=== PATIENT | female | born 1950 | race African-American/Black ===

== ENCOUNTER 2019-01-25 23:29 | Inpatient (IN) | payer MEDICARE, MEDICAID ==
[2019-01-26 01:52] LABS: PTT 28.4 SEC (22.9-36.1); Prothrombin Time 13.6 SEC (12.0-14.7)
[2019-01-26 02:02] LABS: #Lymphocytes 0.9 thou/uL (1.20-3.40); #Monocytes 0.7 thou/uL (0.11-0.59); #Neutrophils 5.8 thou/uL (1.40-6.50); %Basophils 0.1 % (0.0-1.0); %Eosinophils 0.2 % (0.0-10.0); %Lymphocytes 12.5 % (21.0-51.0); %Neutrophils 78.1 % (42.0-75.0); Hemoglobin 8.4 g/dL (12.0-16.0); Mean Corpuscular HGB CONC 32.9 g/dL (32.0-36.0); Mean Corpuscular Hemoglobin 32.2 pg (27.0-31.0); Mean Platelet Volume 7.9 fL (7.4-10.4); Platelet Count 346 thou/uL (130-400); RBC Distribution Width 15.2 % (11.5-14.5); White Blood Cell (WBC) Count 7.4 thou/uL (4.8-10.8)
[2019-01-26 02:18] LABS: ALT (SGPT) Less than 7 U/L (8-55); AST (SGOT) 13 U/L (5-34); Albumin 2.6 g/dL (3.4-4.8); Alkaline Phosphatase 90 U/L (40-150); Anion Gap 11 mmol/L (10-20); BUN (Urea Nitrogen) 18 mg/dL (9.8-20.1); Bilirubin, Total 1.1 mg/dL (0.2-1.2); Calc. Creatinine Clearance 0 mL/min (70-130); Calcium 8.5 mg/dL (7.8-10.44); Carbon Dioxide 26 mmol/L (23-31); Chloride 109 mmol/L (98-107); Estimated GFR-MDRD 36; Globulin 3.8 g/dL (2.4-3.5); Protein, Total 6.4 g/dL (6.0-8.3); Sodium 143 mmol/L (136-145)
[2019-01-26 02:22] LABS: Glucose 48 mg/dL (80-115)
[2019-01-26] MEDS ORDERED: Dextrose 50% Abboject 50 ML SYRINGE ONE ×3 (02:24→09:34)
[2019-01-26 03:11] LABS: Bilirubin Small (Negative); Blood, Urine Moderate (Negative); Clarity CLOUDY (Clear); Glucose, Urine (Dipstick) 100 mg/dL (Negative); Leukocyte Negative (Negative); Nitrite Negative (Negative); Protein, Urine (Dipstick) 300 mg/dL (Neg-Trace); pH, Urine 5.5 (5.0-9.0)
[2019-01-26 03:12] LABS: Bacteria/HPF 4+ HPF (None Seen); Pathc Cast-AUWi Flag 2.44 (0-2.49); Squamous Epithelial 0-3 HPF (0-3)
[2019-01-26 03:19] LABS: Other Casts/LPF 0-3 COARSE GRAN LPF (0-3 Hyaline)
[2019-01-26] MEDS ORDERED: Labetalol HCl 100 MG/20 ML VIAL ONE (03:54)
[2019-01-26] MEDS ORDERED: Aspirin 300 MG Suppository ONE (03:54)
[2019-01-26] MEDS ORDERED: Acetaminophen 325 MG TAB PO PRN (06:01)
[2019-01-26] MEDS ORDERED: Acetaminophen 650 MG Suppository PR PRN (06:01)
[2019-01-26] MEDS ORDERED: Ondansetron PF 4 MG/2 ML Vial IVP PRN (06:01)
[2019-01-26] MEDS ORDERED: Ondansetron ODT 4 MG TAB PO PRN (06:01)
[2019-01-26] MEDS ORDERED: Dextrose 50% Abboject 50 ML SYRINGE SLOW IVP PRN (06:17)
[2019-01-26] MEDS ORDERED: Dextrose 5% in Water 1,000 ML IV PRN (06:17)
[2019-01-26] MEDS ORDERED: HumaLOG 300 UNITS/3 ML VIAL SC PRN (06:17)
--- NOTE | 2019-01-26 07:18 | CT ---
PRELIMINARY REPORT/[facility]/EMERGENCY AFTER HOURS PROCEDURE: Addendum created by Dewey De La Garza MD on 01/26/2019 12:29 AM Central Time ([place] & [place]) IMPRESSION: No acute intracranial abnormality. The findings were verbally communicated via telephone conference with SharerCassie at 12:29 AM CDT on 01/26/2019. The findings were acknowledged and understood. Initial Report created on 01/26/2019 12:25 AM Central Time ([place] & [place]) EXAM: CT Head Without Contrast EXAM DATE/TIME: 01/26/2019 12:10 AM CLINICAL HISTORY: 68 years old, unknown; Signs and symptoms; Altered mental status/memory loss; Patient HX: Last seen normal 2100, PT has contracted upper ext, non verbal and is unable to follow commands TECHNIQUE: Imaging protocol: Axial computed tomography images of the head without contrast. Other technique: STROKE PROTOCOL was implemented. COMPARISON: No relevant prior studies available. FINDINGS: Brain: Scattered areas of hypoattenuation, likely chronic small vessel ischemic change, demyelination, or gliosis. No mass, hemorrhage, or acute infarction. Ventricles: Normal. Bones/joints: Normal. Sinuses: Normal as visualized. Mastoid air cells: Normal as visualized. Soft tissues: Unremarkable. Vasculature: Atherosclerotic vascular calcifications. IMPRESSION: ASSESSMENT: ASPECTS ([place] Stroke Program Early CT Score) is 10. Thank you for allowing us to participate in the care of your patient. Dictated and Authenticated by: Dewey De La Garza MD 01/26/2019 12:25 AM Central Time ([place] & [place]) FINAL REPORT EMERGENCY AFTER HOURS BRAIN CT WITHOUT IV CONTRAST: Date: 01/26/19 Time: 0011 hours IMPRESSION: No significant acute intracranial process. This report is in agreement with a preliminary report given by Luisana. Transcribed Date/Time: 01/26/2019 8:04 AM
--- NOTE | 2019-01-26 07:24 | CT ---
PRELIMINARY REPORT/[facility]/EMERGENCY AFTER HOURS PROCEDURE: Addendum created by Dewey De La Garza MD on 01/26/2019 4:18 AM Central Time ([place] & [place]) THIS REPORT CONTAINS FINDINGS THAT MAY BE CRITICAL TO PATIENT CARE. The findings were verbally communicated via telephone conference with EnrriquerCassie at 4:18 AM CDT on 01/26/2019. The findings were acknowledged and understood. Initial Report created on 01/26/2019 4:06 AM Central Time ([place] & [place]) EXAM: CT Angiography Head With Contrast EXAM DATE/TIME: 01/26/2019 3:40 AM CLINICAL HISTORY: 68 years old, female; Signs and symptoms; Cognitive deficit; Altered mental status; Patient HX: 68 y/o F presents to ED via EMS transport for AMS. Per family, PT last seen nrml at 2100, family then went to the store. On returning home, PT was found in a chair and not responding to family, with family reporting pt's arms clenched to her chest. Family checked pt's bld glu at home, initial readin g 68. PT did not complain to family of feeling poorly, having pain, n/v/d throughout the day. PT, with h/o CVA, is ususally able to ambulate with assistance. PT takes 1 tab asa daily. She was previously taking but is no longer taking plavix. ; Additional info: PT moved head during exam. Unable to repeat due to PT gfr. TECHNIQUE: Imaging protocol: Axial computed tomographic angiography images of the head with intravenous contrast using CT angiography protocol. Coronal and sagittal reformatted images were created and reviewed. 3D rendering: MIP reconstructed images were created and reviewed. COMPARISON: e+1 CT BRAIN WO CON 01/26/2019 12:10 AM FINDINGS: Right internal carotid artery: Unremarkable. Intracranial segment is patent with no significant stenosis. No aneurysm. Right anterior cerebral artery: Unremarkable. No occlusion or significant stenosis. No aneurysm. Right middle cerebral artery: Unremarkable. No occlusion or significant stenosis. No aneurysm. Right posterior cerebral artery: Unremarkable. No occlusion or significant stenosis. No aneurysm. Right vertebral artery: Unremarkable. No occlusion or significant stenosis. No aneurysm. Left internal carotid artery: Unremarkable. Intracranial segment is patent with no significant stenosis. No aneurysm. Left anterior cerebral artery: Unremarkable. No occlusion or significant stenosis. No aneurysm. Left middle cerebral artery: Unremarkable. No occlusion or significant stenosis. No aneurysm. Left posterior cerebral artery: Unremarkable. No occlusion or significant stenosis. No aneurysm. Left vertebral artery: Unremarkable. No occlusion or significant stenosis. No aneurysm. Basilar artery: Unremarkable. No occlusion or significant stenosis. No aneurysm. IMPRESSION: No acute findings. EXAM: CT Angiography Neck With Contrast EXAM DATE/TIME: 01/26/2019 3:40 AM CLINICAL HISTORY: 68 years old, female; Signs and symptoms; Cognitive deficit; Altered mental status; Patient HX: 68 y/o F presents to ED via EMS transport for AMS. Per family, PT last seen nrml at 2100, family then went to the store. On returning home, PT was found in a chair and not responding to family, with family reporting pt's arms clenched to her chest. Family checked pt's bld glu at home, initial readin g 68. PT did not complain to family of feeling poorly, having pain, n/v/d throughout the day. PT, with h/o CVA, is ususally able to ambulate with assistance. PT takes 1 tab asa daily. She was previously taking but is no longer taking plavix. ; Additional info: PT moved head during exam. Unable to repeat due to PT gfr. TECHNIQUE: Imaging protocol: Axial computed tomographic angiography images of the neck with intravenous contrast using CT angiography protocol. COMPARISON: e+1 CT BRAIN WO CON 01/26/2019 12:10 AM FINDINGS: Tubes, catheters and devices: Partially visualized right internal jugular central venous catheter. VASCULATURE: Right common carotid artery: Normal. No significant stenosis. No dissection or occlusion. Right internal carotid artery: Normal. Extracranial segment is patent with no significant stenosis. No dissection or occlusion. Right external carotid artery: Normal. No occlusion or significant stenosis. Right vertebral artery: Normal. No significant stenosis. No dissection or occlusion. Left common carotid artery: Normal. No significant stenosis. No dissection or occlusion. Left internal carotid artery: Normal. Extracranial segment is patent with no significant stenosis. No dissection or occlusion. Left external carotid artery: Normal. No occlusion or significant stenosis. Left vertebral artery: Normal. No significant stenosis. No dissection or occlusion. NECK: Trachea: Secretions or aspirated material within the upper thoracic trachea. Thyroid: 6 mm right posterior thyroid lobe nodule. Bones/joints: Degenerative changes of the visualized glenohumeral joints. Soft tissues: Normal. No significant soft tissue swelling. Lungs: Small bilateral pleural effusions with associated posterior atelectasis. IMPRESSION: No acute arterial vascular abnormality. COMMENT: Reference per NASCET criteria for degree of stenosis: Mild: less than 50% stenosis. Moderate: 50- 69% stenosis. Severe: 70-94% stenosis. Near occlusion: 95-99% stenosis. Thank you for allowing us to participate in the care of your patient. Dictated and Authenticated by: Dewey De La Garza MD 01/26/2019 4:06 AM Central Time ([place] & [place]) FINAL REPORT EMERGENCY AFTER HOURS HEAD CTA WITH 3D RENDERING AND NECK CTA WITH 3D RENDERING: DATE: 01/26/19 TIME: 0343 hours FINDINGS/IMPRESSION: HEAD CTA: No evidence for major branch occlusion. No evidence for aneurysm. NECK CTA: No evidence of hemodynamically significant stenosis. Secretions or fluid in the upper thoracic trache a. 0.6 cm posterior right thyroid nodule. Evidence for pleural effusions. This report is in agreement with a preliminary report given by Luisana. Transcribed Date/Time: 01/26/2019 8:21 AM
--- NOTE | 2019-01-26 07:25 | RAD ---
EXAM: Single view of the chest HISTORY: Altered mental status COMPARISON: None FINDINGS: Single view of the chest shows an enlarged cardiomediastinal silhouette. There is no eviden ce of consolidation, mass, or pleural effusion. Degenerative changes are seen in the spine. IMPRESSION: Cardiomegaly without evidence of acute cardiopulmonary disease
--- NOTE | 2019-01-26 07:27 | RAD ---
EXAM: Single view of the chest HISTORY: Central line placement COMPARISON: 01/26/2019 FINDINGS: Single view of the chest shows an enlarged but stable cardiomediastinal silhouette. A righ t IJ central venous catheter seen with its tip at the atrial caval junction. No pneumothorax is seen. There is no evidence of consolidation, mass, or pleural effusion. Degenerative changes are seen in the spine. IMPRESSION: Status post central line placement without evidence of complication.
--- NOTE | 2019-01-26 07:51 | HP ---
PRIMARY CARE PHYSICIAN: None reported. CODE STATUS: Full code. TIME OF EVALUATION: 6:00 a.m. CHIEF COMPLAINT: Altered mental status. HISTORY OF PRESENT ILLNESS: This is a 68-year-old female patient, came to the hospital through EMS due to altered mental status. The last time the patient was seen normal was around 2100. Family went to the store and found the patient when they come back not responded being on a chair and change of blood sugar was around 68. No clear etiology for the symptoms of the patient except for hypoglycemia. REVIEW OF SYSTEMS: Unable to obtain. The patient is confused. PAST MEDICAL HISTORY: Diabetes, hypertension, hyperlipidemia, CVA. PAST SURGICAL HISTORY: Hysterectomy. PSYCHIATRIC HISTORY: No previous psychiatric history. SOCIAL HISTORY: No drugs. No smoking history. No alcohol. FAMILY HISTORY: Reviewed and noncontributory for current presentation. KNOWN ALLERGIES: No known drug allergies. REPORTED MEDICATIONS: 1. Vitamin D3. 2. Lasix. 3. Lisinopril. 4. Hydrochlorothiazide. 5. Linzess. 6. Gabapentin. 7. Aspirin. PHYSICAL EXAMINATION: VITAL SIGNS: On presentation, blood pressure 220/113, pulse 63, respiratory rate was 16, oxygen saturation was 98% on room air. GENERAL: The patient was met in the bedside. The patient is obese and confused, not in acute distress. HEENT: Eyes normal conjunctivae. Dry oral mucosa. Anicteric. No JVD. RESPIRATORY: Bilateral air entry. No rales. No wheezes. Symmetric expansion. CARDIOVASCULAR: Normal rate, regular rhythm. No murmurs. No gallop. The patient had bilateral leg edema, and chronic changes in the skin in the legs. ABDOMEN: Soft, normal bowel sounds. MUSCULOSKELETAL: Baseline range of motion and strength. No tenderness. Skin: Warm, intact. No pallor. No rash. No redness. The patient has chronic atrophic changes in bilateral lower extremities with change in color. Peripheral pulses are present. Capillary refill seems to be intact. NEUROLOGIC: The patient is confused, unable to fully explore. The patient has sequelae of previous stroke. PSYCHIATRIC: The patient is in good mood, confused, unable to fully explore. DIAGNOSTIC DATA: EKG was reviewed. The patient has normal sinus rhythm with left ventricular hypertrophy with repolarization abnormalities. Ventricular rate 60, MT 130, QRS 86, QT corrected 502. Radiology report was reviewed. CT without contrast was normal. No significant abnormalities. CT of the head with contrast showed no acute findings. LABORATORY DATA: Labs were reviewed. The patient has white count 7.4, hemoglobin 8.4, MCV 98, platelet count 346. Coagulation; PT 13.6, INR 1.0, PTT 28.4. Chemistry; sodium 143, potassium 3.0, chloride 109, carbon dioxide 26, anion gap 11, BUN 18, creatinine 1.69. GFR 36, glucose 48, calcium 8.5, total bilirubin 1.1. AST 13, ALT less than 70, alkaline phosphatase 90. Troponin 0.012. Albumin 2.6. Urine was done and had white count 4 to 6. ASSESSMENT AND PLAN: The patient will be placed in the hospital with following medical problems: 1. Acute encephalopathy. Possible etiology is metabolic secondary to hypoglycemia, or due to hypertensive emergency. The mentation has improved after infusion of glucose and also better control of the blood pressure. We will treat underlying condition. 2. Hypertensive emergency. Blood pressure has improved with IV labetalol, that will be continued for now. Reconcile home medications once updated. 3. Chronic normocytic anemia. The level of hemoglobin has been slowly dropping as per the last labs that we have on records. We will recheck hemoglobin around 12 to make any further decisions. 4. Hypoglycemia, unclear etiology. We placed the patient on D5. Blood sugar has improved, it needs to be monitored, if not improving, she might need to be placed on D10. 5. Chronic kidney disease, stage 3. We will monitor kidney function, seems to be stable when compared with previous records. 6. Deep venous thrombosis prophylaxis. 7. Mildly elevated CK, could be due to the patient seemed to be in the same position for quite some time, not high enough. We will monitor and the patient already receiving some fluids. 8. History of diabetes type 2, uncontrolled, presented with hypoglycemia. For now, we will give D5 and we will start the patient on sliding scale to monitor blood sugar and treat accordingly. 9. Hyperlipidemia, low-cholesterol diet is advised. Reconcile home medications once updated. 10. History of cerebrovascular accident, fall precautions. Job ID: [id number]
[2019-01-26] MEDS ORDERED: Enoxaparin Sodium 40 MG/0.4 ML SYRINGE ONE (09:16)
[2019-01-26] MEDS: Enoxaparin Sodium 40 MG/0.4 ML SYRINGE SC SCH (09:21)
[2019-01-26] MEDS ORDERED: Iopamidol 370 76% 100 ML VIAL ONE (10:35)
[2019-01-26 12:12] LABS: Hemoglobin 7.8 g/dL (12.0-16.0)
[2019-01-26 13:42] VITALS: BMI 47.7
[2019-01-26] MEDS: Labetalol HCl 100 MG/20 ML VIAL SLOW IVP PRN (16:23)
--- NOTE | 2019-01-26 18:03 | PDOC.PN ---
- Subjective Encounter Start Date: 01/26/19 Encounter Start Time: 18:00 Subjective: f/u for hypoglycemic encephalopathy with persistently low -: glucose on D51/2NS IVF. Tolerating mech soft diet currently. - Objective Resuscitation Status - Order Detail: 01/26/19 06:01 Resuscitation Status Routine Resuscitation Status: FULL: Full Resuscitation MAR Reviewed: Yes Vital Signs & Weight: Vital Signs (12 hours) Temp Pulse Pulse Pulse Resp BP BP 01/26/19 16:59 01/26/19 16:23 79 212/88 H 01/26/19 15:54 60 58 L 189/84 H 01/26/19 15:50 01/26/19 15:47 97.5 F L 63 18 01/26/19 13:03 97.3 F L 60 20 BP BP Pulse Ox 01/26/19 16:59 144/67 H 01/26/19 16:23 01/26/19 15:54 212/88 H 01/26/19 15:50 98 01/26/19 15:47 212/91 H 98 01/26/19 13:03 147/93 H 98 Weight Weight 269 lb 6.4 oz Result Diagrams: 01/26/19 12:02 01/26/19 01:30 Additional Labs: Accuchecks 01/26/19 01/26/19 01/26/19 17:28 16:58 16:25 POC Glucose 66 L 53 L* 37 L* 01/26/19 01/26/19 01/26/19 10:21 09:42 09:27 POC Glucose 112 H 53 L* 55 L* 01/26/19 01/26/19 01/26/19 05:48 04:35 00:02 POC Glucose 95 57 L* 90 Laboratory Tests 08/17/18 01/26/19 12:20 01:30 Hgb 9.4 L 8.4 L Radiology Reviewed by me: Yes (CT brain - no acute process; CTA brain - no occlusion or signif stenosis) EKG Reviewed by me: Yes (Tele - SR) Phys Exam - Physical Examination Constitutional: NAD lethargic but awakens to name and tracks briefly HEENT: PERRLA, sclera anicteric, oral pharynx no lesions Neck: no nodes, no JVD, supple, full ROM Respiratory: no wheezing, no rales, no rhonchi, clear to auscultation bilateral S1, S2 Cardiovascular: RRR, no significant murmur, no rub, gallop Gastrointestinal: soft, non-tender, no distention, positive bowel sounds Musculoskeletal: no edema, pulses present Neurological: normal sensation, moves all 4 limbs Skin: normal turgor, cap refill <2 seconds Dx/Plan (1) Acute metabolic encephalopathy Code(s): G93.41 - METABOLIC ENCEPHALOPATHY Status: Acute Comment: Likely due to iatrogenic hypoglycemia from Levemir, hold all insulin, continue tx outlined below, serial monitoring (2) Hypoglycemia Code(s): E16.2 - HYPOGLYCEMIA, UNSPECIFIED Status: Acute Comment: Iatrogenic due to Levemir, hold Levemir, D5 IVF, encourage po intake, serial accuchecks (3) Hypertensive urgency Code(s): I16.0 - HYPERTENSIVE URGENCY Status: Acute Comment: Resolved, resume home BP regimen, IV Labetalol prn (4) CKD (chronic kidney disease), stage III Code(s): N18.3 - CHRONIC KIDNEY DISEASE, STAGE 3 (MODERATE) Status: Chronic Comment: Avoid nephrotoxic meds and limit contrast exposure, IVF's, serial creatinine (5) Hypokalemia Code(s): E87.6 - HYPOKALEMIA Status: Acute Comment: KCL replacement, repeat K+ level in am (6) Normocytic anemia Code(s): D64.9 - ANEMIA, UNSPECIFIED Status: Chronic Comment: Stable, serial H/H monitoring, likely due to CKD (7) DM II (diabetes mellitus, type II), controlled Code(s): E11.9 - TYPE 2 DIABETES MELLITUS WITHOUT COMPLICATIONS Status: Chronic Comment: Taking Levemir 80u in am and 90u pm, hold currently, check A1C, serial accuchecks - Plan plan discussed w/ family, PT/OT, web content & social media manager, DVT proph w/SCDs Stable currently -: Continue IV D51/2 NS -: Encourage po intake with mech soft diet -: Resume home BP regimen -: AM lab: BMP, CBC, A1C * .
[2019-01-26] MEDS: Dextrose 5 %-0.45 % NaCl 1,000 ML IV SCH (21:27)
[2019-01-26] MEDS: Gabapentin 300 MG CAP PO SCH (21:27)
[2019-01-27] MEDS: Labetalol HCl 100 MG/20 ML VIAL SLOW IVP PRN ×3 (02:02→20:23)
[2019-01-27 06:36] LABS: #Eosinphils 0.1 thou/uL (0.0-0.7); #Lymphocytes 1.6 thou/uL (1.20-3.40); #Monocytes 0.7 thou/uL (0.11-0.59); #Neutrophils 3.7 thou/uL (1.40-6.50); %Basophils 0.6 % (0.0-1.0); %Eosinophils 2.4 % (0.0-10.0); %Lymphocytes 25.7 % (21.0-51.0); %Monocytes 11.1 % (0.0-10.0); %Neutrophils 60.3 % (42.0-75.0); Hemoglobin 7.1 g/dL (12.0-16.0); Mean Corpuscular HGB CONC 31.9 g/dL (32.0-36.0); Mean Corpuscular Hemoglobin 31.1 pg (27.0-31.0); Mean Corpuscular Volume 97.3 fL (78.0-98.0); Mean Platelet Volume 8.1 fL (7.4-10.4); Platelet Count 247 thou/uL (130-400); RBC Distribution Width 15.6 % (11.5-14.5); Red Blood Cell (RBC) Count 2.27 mill/uL (4.20-5.40); White Blood Cell (WBC) Count 6.2 thou/uL (4.8-10.8)
[2019-01-27 06:50] LABS: Hemoglobin A1c 3.9 % (4.0-6.0)
[2019-01-27 07:07] LABS: Anion Gap 11 mmol/L (10-20); BUN (Urea Nitrogen) 17 mg/dL (9.8-20.1); Calc. Creatinine Clearance 58 mL/min (70-130); Calcium 7.9 mg/dL (7.8-10.44); Carbon Dioxide 24 mmol/L (23-31); Chloride 111 mmol/L (98-107); Estimated GFR-MDRD 34; Potassium 3.2 mmol/L (3.5-5.1); Sodium 143 mmol/L (136-145)
[2019-01-27 07:14] LABS: Glucose 55 mg/dL (80-115)
[2019-01-27] MEDS ORDERED: FOLIC ACID PO SCH (09:00)
[2019-01-27] MEDS ORDERED: B2 PO SCH (09:00)
[2019-01-27] MEDS ORDERED: B6 PO SCH (09:00)
[2019-01-27] MEDS ORDERED: VIT D3 PO SCH (09:00)
[2019-01-27] MEDS ORDERED: B12 PO SCH (09:00)
[2019-01-27] MEDS ORDERED: Prevnar 13-Val Conj/PF 0.5 ML SYRINGE IM ONE (09:00)
[2019-01-27] MEDS: Lisinopril/Hydrochlorothiazide 20/25 mg Tablet PO SCH (09:04)
[2019-01-27] MEDS: Gabapentin 300 MG CAP PO SCH ×3 (09:04→20:24)
[2019-01-27] MEDS: Enoxaparin Sodium 40 MG/0.4 ML SYRINGE SC SCH (09:05)
[2019-01-27] MEDS: Aspirin 81 mg Enteric Coated Tablet PO SCH (09:05)
[2019-01-27] MEDS: Dextrose 5 %-0.45 % NaCl 1,000 ML IV SCH ×2 (11:03→20:23)
--- NOTE | 2019-01-27 15:42 | PDOC.PN ---
- Subjective Encounter Start Date: 01/27/19 Encounter Start Time: 15:35 Subjective: f/u for hypoglycemic encephalopathy due to overdose of Levemir. -: Feeling better and glucose stabilizing with D5 IVF. - Objective Resuscitation Status - Order Detail: 01/26/19 06:01 Resuscitation Status Routine Resuscitation Status: FULL: Full Resuscitation MAR Reviewed: Yes Vital Signs & Weight: Vital Signs (12 hours) Temp Pulse Resp BP BP Pulse Ox 01/27/19 12:29 79 187/91 H 01/27/19 11:51 97.5 F L 96 16 184/87 H 99 01/27/19 09:04 60 159/71 H 01/27/19 08:54 99 01/27/19 07:50 97.4 F L 60 16 159/71 H 99 01/27/19 04:00 97.7 F 68 16 156/72 H 97 Weight Weight 269 lb 6.4 oz I&O: 01/26/19 01/27/19 01/28/19 06:59 06:59 06:59 Intake Total 1120 Output Total 450 Balance 670 Result Diagrams: 01/27/19 06:06 01/27/19 06:06 Additional Labs: Accuchecks 01/27/19 01/27/19 01/27/19 10:21 07:28 04:16 POC Glucose 108 67 L 77 01/26/19 01/26/19 01/26/19 22:34 18:43 17:28 POC Glucose 89 84 66 L 01/26/19 01/26/19 16:58 16:25 POC Glucose 53 L* 37 L* Microbiology 01/26/19 02:45 Urine vences catheter Urine Culture - Preliminary Laboratory Tests 08/17/18 01/26/19 01/26/19 12:20 01:30 01:30 Hgb 9.4 L 8.4 L Potassium 3.0 L Hemoglobin A1c 01/26/19 01/27/19 12:02 06:06 Hgb 7.8 L Potassium Hemoglobin A1c 3.9 L EKG Reviewed by me: Yes (Tele - SR) Phys Exam - Physical Examination Constitutional: NAD HEENT: PERRLA, sclera anicteric, oral pharynx no lesions Neck: no nodes, no JVD, supple, full ROM Respiratory: no wheezing, no rales, no rhonchi, clear to auscultation bilateral S1, S2 Cardiovascular: RRR, no significant murmur, no rub, gallop obese Gastrointestinal: soft, non-tender, no distention, positive bowel sounds chronic venous stasis changes bilat LE's Musculoskeletal: pulses present, edema present Neurological: moves all 4 limbs A x O x 1 Skin: normal turgor, cap refill <2 seconds Dx/Plan (1) Acute metabolic encephalopathy Code(s): G93.41 - METABOLIC ENCEPHALOPATHY Status: Acute Comment: Likely due to iatrogenic hypoglycemia from Levemir, hold all insulin, continue tx outlined below, serial monitoring, A1C 3.9 (2) Hypoglycemia Code(s): E16.2 - HYPOGLYCEMIA, UNSPECIFIED Status: Acute Comment: Iatrogenic due to Levemir, hold Levemir, D5 IVF, encourage po intake, serial accuchecks (3) Hypertensive urgency Code(s): I16.0 - HYPERTENSIVE URGENCY Status: Acute Comment: Resolved, resume home BP regimen, IV Labetalol prn (4) CKD (chronic kidney disease), stage III Code(s): N18.3 - CHRONIC KIDNEY DISEASE, STAGE 3 (MODERATE) Status: Chronic Comment: Avoid nephrotoxic meds and limit contrast exposure, IVF's, serial creatinine (5) Hypokalemia Code(s): E87.6 - HYPOKALEMIA Status: Acute Comment: KCL replacement, repeat K+ level in am (6) Normocytic anemia Code(s): D64.9 - ANEMIA, UNSPECIFIED Status: Chronic Comment: Check Iron studies, Ferritin, B12/Folate, stool guaiac, likely due to CKD (7) DM II (diabetes mellitus, type II), controlled Code(s): E11.9 - TYPE 2 DIABETES MELLITUS WITHOUT COMPLICATIONS Status: Chronic Comment: Taking Levemir 80u in am and 90u pm, hold currently, serial accuchecks, d/c all hypoglycemic meds - Plan plan discussed w/ family, continue antibiotics, PT/OT, social media content manager Stable currently -: Continue D5 IVF's -: D/C all DM medications -: Start Rocephin 1gm IV daily -: PT/OT for functional assessment * AM lab: BMP, H/H, Ferritin, Iron studies, Retic count, B12/Folate, stool guaiac
[2019-01-27] MEDS: cefTRIAXone\\ROCEPHIN 1 GM in Sodium Chloride 0.9% 100 ML IVPB SCH (18:12)
[2019-01-27] MEDS ORDERED: Ziprasidone 20 MG VIAL IM PRN (21:05)
[2019-01-27] MEDS ORDERED: Sterile Water 10 ML VIAL FS PRN (21:22)
[2019-01-28] MEDS: Labetalol HCl 100 MG/20 ML VIAL SLOW IVP PRN ×2 (00:10→04:19)
[2019-01-28 07:40] LABS: Iron 40 ug/dL (50-170); Iron Binding Capacity, Total 105 mcg/dL (265-497)
[2019-01-28 07:42] LABS: Hemoglobin 7.1 g/dL (12.0-16.0); Platelet Count 215 thou/uL (130-400)
[2019-01-28 07:42] LABS: Folate (Folic Acid) 2.6 ng/mL (7.0-31.4)
[2019-01-28 07:43] LABS: Reticulocyte Count 3.2 % (0.5-1.5)
[2019-01-28] MEDS: Furosemide 40 MG TAB PO SCH (10:27)
[2019-01-28] MEDS: Lisinopril/Hydrochlorothiazide 20/25 mg Tablet PO SCH (10:27)
[2019-01-28] MEDS: Aspirin 81 mg Enteric Coated Tablet PO SCH (10:27)
[2019-01-28] MEDS: Gabapentin 300 MG CAP PO SCH ×3 (10:27→20:04)
[2019-01-28] MEDS: Enoxaparin Sodium 40 MG/0.4 ML SYRINGE SC SCH (10:28)
[2019-01-28] MEDS: Dextrose 5 %-0.45 % NaCl 1,000 ML IV SCH ×2 (10:33→23:24)
[2019-01-28] MEDS: hydrALAZINE 20 MG/ML VIAL SLOW IVP PRN ×2 (13:24→19:10)
--- NOTE | 2019-01-28 13:25 | PDOC.PN ---
- Subjective Encounter Start Date: 01/28/19 Encounter Start Time: 13:20 Subjective: f/u for hypoglycemic encephalopathy with slow improvement. Remains -: lethargic with poor po intake. BP labile per nursing. - Objective Resuscitation Status - Order Detail: 01/26/19 06:01 Resuscitation Status Routine Resuscitation Status: FULL: Full Resuscitation MAR Reviewed: Yes Vital Signs & Weight: Vital Signs (12 hours) Temp Pulse Resp BP BP BP Pulse Ox 01/28/19 12:00 98.3 F 55 L 16 190/86 H 100 01/28/19 10:27 54 L 160/75 H 01/28/19 07:44 97.9 F 54 L 16 160/75 H 95 01/28/19 05:48 71 179/99 H 01/28/19 03:27 95.9 F L 60 16 196/79 H 99 Weight Weight 269 lb 6.4 oz I&O: 01/27/19 01/28/19 01/29/19 06:59 06:59 06:59 Intake Total 1120 1915 Output Total 450 750 Balance 670 1165 Result Diagrams: 01/28/19 07:17 01/27/19 06:06 Additional Labs: Accuchecks 01/28/19 01/28/19 01/28/19 10:43 05:33 00:03 POC Glucose 88 102 101 01/27/19 16:57 POC Glucose 99 Microbiology 01/26/19 02:45 Urine vences catheter Urine Culture - Final 01/26/19 02:45 Urine vences catheter Urine Culture - Preliminary Laboratory Tests 08/17/18 01/26/19 01/26/19 12:20 01:30 01:30 Hgb 9.4 L 8.4 L Potassium 3.0 L Hemoglobin A1c Iron TIBC Ferritin Vitamin B12 Folate 01/26/19 01/27/19 01/27/19 12:02 06:06 06:06 Hgb 7.8 L 7.1 L Potassium Hemoglobin A1c 3.9 L Iron TIBC Ferritin Vitamin B12 Folate 01/28/19 01/28/19 01/28/19 06:37 06:48 07:17 Hgb Potassium Hemoglobin A1c Iron 40 L TIBC 105 L Ferritin 383.44 H Vitamin B12 984 H Folate 2.60 L EKG Reviewed by me: Yes (Tele - SR) Phys Exam - Physical Examination lethargic, opens eyes to name briefly HEENT: PERRLA, sclera anicteric, oral pharynx no lesions Neck: no nodes, no JVD, supple, full ROM Respiratory: no wheezing, no rales, no rhonchi S1, S2 Cardiovascular: RRR, no significant murmur, no rub, gallop Gastrointestinal: soft, non-tender, no distention, positive bowel sounds chronic venous stasis and leathery skin to bilat LE's Musculoskeletal: pulses present, edema present A x O x 1 Skin: normal turgor, cap refill <2 seconds Dx/Plan (1) Acute metabolic encephalopathy Code(s): G93.41 - METABOLIC ENCEPHALOPATHY Status: Acute Comment: Likely due to iatrogenic hypoglycemia from Levemir, hold all insulin, continue tx outlined below, serial monitoring, A1C 3.9, slow improvement (2) Hypoglycemia Code(s): E16.2 - HYPOGLYCEMIA, UNSPECIFIED Status: Acute Comment: Iatrogenic due to Levemir, hold Levemir, D5 IVF, encourage po intake, serial accuchecks, increase D5 IVF 100ml/h (3) Hypertensive urgency Code(s): I16.0 - HYPERTENSIVE URGENCY Status: Acute Comment: Resolved, resume home BP regimen, IV Labetalol prn, add Hydralazine prn (4) CKD (chronic kidney disease), stage III Code(s): N18.3 - CHRONIC KIDNEY DISEASE, STAGE 3 (MODERATE) Status: Chronic Comment: Avoid nephrotoxic meds and limit contrast exposure, IVF's, serial creatinine (5) Hypokalemia Code(s): E87.6 - HYPOKALEMIA Status: Acute Comment: KCL replacement, repeat K+ level in am (6) Normocytic anemia Code(s): D64.9 - ANEMIA, UNSPECIFIED Status: Chronic Comment: Iron deficiency and Folate component, Transfuse 2u PRBC's today, IV Iron infusion, Folic acid po when taking po consistently (7) DM II (diabetes mellitus, type II), controlled Code(s): E11.9 - TYPE 2 DIABETES MELLITUS WITHOUT COMPLICATIONS Status: Chronic Comment: Taking Levemir 80u in am and 90u pm, hold currently, serial accuchecks, d/c all hypoglycemic meds - Plan continue antibiotics, PT/OT, social work manager, DVT proph w/SCDs Continue supportive mgmt -: IV Iron infusion today -: Transfuse 2u PRBC's today -: Continue Rocephin daily -: Increase D5 IVF 100ml/h * Add Hydralazine PRN HTN * AM lab: BMP, H/H
[2019-01-28] MEDS ORDERED: Iron, Sodium Ferric Gluconate 125 MG in Sodium Chloride 0.9% 100 ML IVPB SCH (15:00)
[2019-01-28] MEDS: cefTRIAXone\\ROCEPHIN 1 GM in Sodium Chloride 0.9% 100 ML IVPB SCH (16:35)
[2019-01-29] MEDS: hydrALAZINE 20 MG/ML VIAL SLOW IVP PRN (04:31)
[2019-01-29 04:40] LABS: Hemoglobin 9.8 g/dL (12.0-16.0); Platelet Count 265 thou/uL (130-400)
[2019-01-29 04:58] LABS: Anion Gap 12 mmol/L (10-20); BUN (Urea Nitrogen) 18 mg/dL (9.8-20.1); Calc. Creatinine Clearance 58 mL/min (70-130); Calcium 8.1 mg/dL (7.8-10.44); Carbon Dioxide 24 mmol/L (23-31); Chloride 110 mmol/L (98-107); Estimated GFR-MDRD 34; Glucose 109 mg/dL (80-115); Potassium 3.6 mmol/L (3.5-5.1); Sodium 142 mmol/L (136-145)
[2019-01-29] MEDS: Furosemide 40 MG TAB PO SCH (09:23)
[2019-01-29] MEDS: Aspirin 81 mg Enteric Coated Tablet PO SCH (09:23)
[2019-01-29] MEDS: Dextrose 5 %-0.45 % NaCl 1,000 ML IV SCH ×2 (09:23→12:47)
[2019-01-29] MEDS: Lisinopril/Hydrochlorothiazide 20/25 mg Tablet PO SCH (09:23)
[2019-01-29] MEDS: Gabapentin 300 MG CAP PO SCH ×3 (09:23→21:21)
[2019-01-29] MEDS: Enoxaparin Sodium 40 MG/0.4 ML SYRINGE SC SCH (09:27)
--- NOTE | 2019-01-29 09:45 | EKG ---
Test Reason : Blood Pressure : / mmHG Vent. Rate : 060 BPM Atrial Rate : 060 BPM P-R Int : 130 ms QRS Dur : 086 ms QT Int : 502 ms P-R-T Axes : -05 -05 109 degrees QTc Int : 502 ms Normal sinus rhythm Left ventricular hypertrophy with repolarization abnormality Prolonged QT Abnormal ECG Leftward axis Confirmed by JACINDA ALFARO DO ([id number]), editorial specialist GUANAKITO DELA CRUZ ([id number]) on 01/29/2019 9:45:24 AM Referred By: Confirmed By:JACINDA ALFARO DO
--- NOTE | 2019-01-29 11:41 | PDOC.PN ---
- Subjective Encounter Start Date: 01/29/19 Encounter Start Time: 11:39 Ms. Ojeda was seen today in follow-up of encephalopathy from hypoglycemia. She was a bit lethargic yesterday, but today she is more awake and alert. She had her daughter and multiple other family members at bedside. She deos not endorse any complaints. - Objective Resuscitation Status - Order Detail: 01/26/19 06:01 Resuscitation Status Routine Resuscitation Status: FULL: Full Resuscitation MAR Reviewed: Yes Vital Signs & Weight: Vital Signs (12 hours) Temp Pulse Pulse Resp BP BP BP 01/29/19 11:37 97.3 F L 77 16 156/70 H 01/29/19 09:23 79 142/62 H 01/29/19 08:00 01/29/19 07:36 97.5 F L 79 16 01/29/19 05:56 01/29/19 04:00 97.4 F L 71 16 01/29/19 02:50 97.1 F L 69 18 166/80 H 01/29/19 01:37 97.1 F L 66 18 01/29/19 01:20 97.1 F L 66 18 159/72 H 01/29/19 01:02 97.4 F L 66 18 159/69 H 01/29/19 00:49 97.4 F L 66 18 159/69 H 01/29/19 00:17 95.9 F L 64 18 151/69 H 01/29/19 00:00 95.9 F L 65 16 BP Pulse Ox 01/29/19 11:37 97 01/29/19 09:23 01/29/19 08:00 96 01/29/19 07:36 142/62 H 96 01/29/19 05:56 123/60 01/29/19 04:00 189/82 H 98 01/29/19 02:50 96 01/29/19 01:37 159/72 H 96 01/29/19 01:20 01/29/19 01:02 01/29/19 00:49 94 L 01/29/19 00:17 97 01/29/19 00:00 154/70 H 98 Weight Admit Weight 269 lb 6.4 oz Weight 269 lb 6.4 oz I&O: 01/28/19 01/29/19 01/30/19 06:59 06:59 06:59 Intake Total 7015 2301 Output Total 750 770 Balance 1165 1531 Result Diagrams: 01/29/19 04:16 01/29/19 04:16 Additional Labs: Accuchecks 01/29/19 01/29/19 01/28/19 06:25 00:38 18:19 POC Glucose 116 H 123 H 120 H Phys Exam - Physical Examination HEENT: PERRLA Respiratory: no wheezing, no rales, no rhonchi, clear to auscultation bilateral Cardiovascular: RRR, no significant murmur, no rub Gastrointestinal: soft, non-tender, no distention, positive bowel sounds Musculoskeletal: pulses present, edema present + massive lower extremity edema, with leathery, hyperkerotosis of both lower extremities up the the knees Dx/Plan (1) Hypertension Code(s): I10 - ESSENTIAL (PRIMARY) HYPERTENSION Status: Acute (2) Morbid obesity with BMI of 45.0-49.9, adult Code(s): E66.01 - MORBID (SEVERE) OBESITY DUE TO EXCESS CALORIES; Z68.42 - BODY MASS INDEX (BMI) 45.0-49.9, ADULT Status: Acute (3) UTI (urinary tract infection) Status: Acute (4) Hypoglycemia Code(s): E16.2 - HYPOGLYCEMIA, UNSPECIFIED Status: Acute Comment: Iatrogenic due to Levemir, hold Levemir, D5 IVF, encourage po intake, serial accuchecks, increase D5 IVF 100ml/h (5) CKD (chronic kidney disease), stage III Code(s): N18.3 - CHRONIC KIDNEY DISEASE, STAGE 3 (MODERATE) Status: Chronic Comment: Avoid nephrotoxic meds and limit contrast exposure, IVF's, serial creatinine (6) DM II (diabetes mellitus, type II), controlled Code(s): E11.9 - TYPE 2 DIABETES MELLITUS WITHOUT COMPLICATIONS Status: Chronic Comment: Taking Levemir 80u in am and 90u pm, hold currently, serial accuchecks, d/c all hypoglycemic meds - Plan * Hypoglycemia- her blood glucose is stable on IV dextrose infusion- will reduce the rate * She is more alert now, and can resume a diet. Hopefully her blood glucose will rebound after she is allowed to eat a few days * Will check a TFT's and an AM cortisol, but I suspect the hypoglycemia is due to mild- moderate malnutrition, and poor glycogen stores, as well as UTI. * UTI- can transition her to an oral antibiotic * HTN- blood pressure is stable. * Plan is for usp placement prior to returning home
[2019-01-29] MEDS: Cefdinir 300 MG CAP PO SCH (21:21)
[2019-01-30] MEDS: Dextrose 5 %-0.45 % NaCl 1,000 ML IV SCH ×2 (04:57→22:00)
[2019-01-30 06:08] LABS: Free T4 (Free Thyroxine) 1.04 ng/dL (0.70-1.48); Thyroid Stimulating Hormone 3.2998 uIU/mL (0.35-4.94)
[2019-01-30] MEDS: Enoxaparin Sodium 40 MG/0.4 ML SYRINGE SC SCH (08:11)
[2019-01-30] MEDS: pyridOXINE 50 MG (B6) TAB PO SCH (08:12)
[2019-01-30] MEDS: Cefdinir 300 MG CAP PO SCH ×2 (08:17→22:00)
[2019-01-30] MEDS: Furosemide 40 MG TAB PO SCH (08:17)
[2019-01-30] MEDS: Gabapentin 300 MG CAP PO SCH ×3 (08:17→22:00)
[2019-01-30] MEDS: Lisinopril/Hydrochlorothiazide 20/25 mg Tablet PO SCH (08:18)
[2019-01-30] MEDS: Folic Acid 1 MG TAB PO SCH (08:18)
[2019-01-30] MEDS: Aspirin 81 mg Enteric Coated Tablet PO SCH (08:19)
[2019-01-30] MEDS: Cyanocobalamin (Vitamin B-12) 1,000 MCG TAB PO SCH (08:19)
[2019-01-30] MEDS ORDERED: Amlodipine 5 MG TAB PO SCH (09:00)
--- NOTE | 2019-01-30 12:40 | PDOC.PN ---
- Subjective Encounter Start Date: 01/30/19 Encounter Start Time: 12:38 Ms. Ojeda was seen today in follow-up of Hypoglycemia and encephalopathy. She is awake and alert. She has not eaten much of her lunch. - Objective Resuscitation Status - Order Detail: 01/26/19 06:01 Resuscitation Status Routine Resuscitation Status: FULL: Full Resuscitation MAR Reviewed: Yes Vital Signs & Weight: Vital Signs (12 hours) Temp Pulse Resp BP BP BP Pulse Ox 01/30/19 12:00 97.8 F 82 20 189/81 H 95 01/30/19 09:51 80 163/74 H 01/30/19 09:20 163/74 H 01/30/19 08:18 80 185/77 H 01/30/19 08:00 94 L 01/30/19 07:53 98.7 F 79 18 198/76 H 94 L 01/30/19 04:00 97.9 F 84 16 167/72 H 95 Weight Admit Weight 269 lb 6.4 oz Weight 269 lb 6.4 oz I&O: 01/29/19 01/30/19 01/31/19 06:59 06:59 06:59 Intake Total 2301 1880 213 Output Total 770 555 Balance 1531 1325 213 Result Diagrams: 01/29/19 04:16 01/29/19 04:16 Additional Labs: Accuchecks 01/30/19 01/30/19 01/29/19 12:08 06:01 18:09 POC Glucose 92 95 120 H Phys Exam - Physical Examination HEENT: PERRLA Respiratory: no wheezing, no rales, no rhonchi, clear to auscultation bilateral Cardiovascular: RRR, no significant murmur, no rub Gastrointestinal: soft, non-tender, no distention, positive bowel sounds Musculoskeletal: pulses present, edema present + edema and thickened hyperkeratotic skin bilaterally Neurological: non-focal, normal sensation Dx/Plan (1) Hypoglycemia Code(s): E16.2 - HYPOGLYCEMIA, UNSPECIFIED Status: Acute Comment: Iatrogenic due to Levemir, hold Levemir, D5 IVF, encourage po intake, serial accuchecks, increase D5 IVF 100ml/h (2) Hypertension Code(s): I10 - ESSENTIAL (PRIMARY) HYPERTENSION Status: Acute (3) Morbid obesity with BMI of 45.0-49.9, adult Code(s): E66.01 - MORBID (SEVERE) OBESITY DUE TO EXCESS CALORIES; Z68.42 - BODY MASS INDEX (BMI) 45.0-49.9, ADULT Status: Acute (4) UTI (urinary tract infection) Status: Acute (5) CKD (chronic kidney disease), stage III Code(s): N18.3 - CHRONIC KIDNEY DISEASE, STAGE 3 (MODERATE) Status: Chronic Comment: Avoid nephrotoxic meds and limit contrast exposure, IVF's, serial creatinine (6) DM II (diabetes mellitus, type II), controlled Code(s): E11.9 - TYPE 2 DIABETES MELLITUS WITHOUT COMPLICATIONS Status: Chronic Comment: Taking Levemir 80u in am and 90u pm, hold currently, serial accuchecks, d/c all hypoglycemic meds (7) Moderate malnutrition Code(s): E44.0 - MODERATE PROTEIN-CALORIE MALNUTRITION Status: Acute - Plan * Hypoglycemia- continue D5 drip, util her blood glucose either begins to rise more, or her oral intake improves * Add nutritional supplements * Thyroid function tests and serum cortisol were normal * CKD- stable * HTN- blood pressure has been elevated consistently- will add Amlodipine * UTI- she has been changed to oral antibiotics * Awaiting custodial placement * .
[2019-01-30] MEDS: Labetalol HCl 100 MG/20 ML VIAL SLOW IVP PRN (12:51)
[2019-01-31] MEDS: Labetalol HCl 100 MG/20 ML VIAL SLOW IVP PRN (03:42)
[2019-01-31 05:54] LABS: Anion Gap 10 mmol/L (10-20); BUN (Urea Nitrogen) 18 mg/dL (9.8-20.1); Calc. Creatinine Clearance 52 mL/min (70-130); Carbon Dioxide 25 mmol/L (23-31); Chloride 111 mmol/L (98-107); Estimated GFR-MDRD 30; Glucose 97 mg/dL (80-115); Potassium 4.5 mmol/L (3.5-5.1); Sodium 141 mmol/L (136-145)
[2019-01-31] MEDS: Gabapentin 300 MG CAP PO SCH ×2 (08:58→16:51)
[2019-01-31] MEDS: Folic Acid 1 MG TAB PO SCH (08:58)
[2019-01-31] MEDS: Cyanocobalamin (Vitamin B-12) 1,000 MCG TAB PO SCH (08:59)
[2019-01-31] MEDS: pyridOXINE 50 MG (B6) TAB PO SCH (08:59)
[2019-01-31] MEDS: Aspirin 81 mg Enteric Coated Tablet PO SCH (08:59)
[2019-01-31] MEDS: NIFEdipine XL 60 MG TAB PO SCH (09:02)
[2019-01-31] MEDS: Lisinopril/Hydrochlorothiazide 20/25 mg Tablet PO SCH (09:03)
[2019-01-31] MEDS: Enoxaparin Sodium 40 MG/0.4 ML SYRINGE SC SCH (09:03)
[2019-01-31] MEDS: Cefdinir 300 MG CAP PO SCH ×2 (09:03→20:47)
[2019-01-31] MEDS: Dextrose 5 % And 0.9 % NaCl 1,000 ML IV SCH ×2 (09:19→20:47)
[2019-01-31 14:37] LABS: Actual Bicarbonate (HCO3a) 25.6 mEq/L (22-28); Base Excess (BEa) 1.3 mEq/L (-2.0 to +3.0); CO2 Tension 39.1 mmHg (35.0-45.0); Calcium, Ionized 1.16 mmol/L (1.12-1.30); Carboxyhemoglobin (COHb) 1.6 gm% (0.0-3.0); Hemoglobin (Hb) 9.1 g/dL (12.0-16.0); O2 Tension (PaO2) 71.7 mmHg (> 80.0); Potassium - ABG Lab 4.73 mmol/L (3.70-5.30); pH, Arterial 7.43 (7.35-7.45)
[2019-01-31 14:41] LABS: ALV-art Gradient 29.155 (0-20)
--- NOTE | 2019-01-31 16:14 | PDOC.PN ---
- Subjective Encounter Start Date: 01/31/19 Encounter Start Time: 12:15 Ms. Ojeda was seen today in follow-up around noon time for hypoglycemia and encephalopathy. She was sleep, with her lunch tray untouched in fron of her. When I awaken her and asked her if she wanted to eat, she frowned and said she is not hungry. She promptly went back to sleep. - Objective Resuscitation Status - Order Detail: 01/26/19 06:01 Resuscitation Status Routine Resuscitation Status: FULL: Full Resuscitation MAR Reviewed: Yes Vital Signs & Weight: Vital Signs (12 hours) Temp Pulse Pulse Pulse Resp BP BP 01/31/19 15:57 97.5 F L 67 17 01/31/19 11:53 98.3 F 70 16 01/31/19 10:00 66 67 160/79 H 01/31/19 09:03 66 135/79 01/31/19 09:02 66 135/79 BP BP Pulse Ox 01/31/19 15:57 128/65 99 01/31/19 11:53 180/85 H 97 01/31/19 10:00 124/76 01/31/19 09:03 01/31/19 09:02 Weight Admit Weight 269 lb 6.4 oz Weight 269 lb 6.4 oz I&O: 01/30/19 01/31/19 02/01/19 06:59 06:59 06:59 Intake Total 1880 1867 Output Total 555 1950 Balance 1325 -83 Result Diagrams: 01/29/19 04:16 01/31/19 05:16 Additional Labs: Accuchecks 01/31/19 01/31/19 01/31/19 12:46 05:40 00:05 POC Glucose 99 100 106 01/30/19 18:10 POC Glucose 96 Phys Exam - Physical Examination HEENT: PERRLA Respiratory: no wheezing, no rales, no rhonchi, clear to auscultation bilateral Cardiovascular: RRR, no significant murmur, no rub Gastrointestinal: soft, non-tender, no distention, positive bowel sounds Musculoskeletal: pulses present, edema present + massive lower extremity edema, and chronic venous stasis changes Neurological: non-focal, normal sensation, moves all 4 limbs Dx/Plan (1) Hypoglycemia Code(s): E16.2 - HYPOGLYCEMIA, UNSPECIFIED Status: Acute Comment: Iatrogenic due to Levemir, hold Levemir, D5 IVF, encourage po intake, serial accuchecks, increase D5 IVF 100ml/h (2) Hypertension Code(s): I10 - ESSENTIAL (PRIMARY) HYPERTENSION Status: Acute (3) Morbid obesity with BMI of 45.0-49.9, adult Code(s): E66.01 - MORBID (SEVERE) OBESITY DUE TO EXCESS CALORIES; Z68.42 - BODY MASS INDEX (BMI) 45.0-49.9, ADULT Status: Acute (4) UTI (urinary tract infection) Status: Acute (5) CKD (chronic kidney disease), stage III Code(s): N18.3 - CHRONIC KIDNEY DISEASE, STAGE 3 (MODERATE) Status: Chronic Comment: Avoid nephrotoxic meds and limit contrast exposure, IVF's, serial creatinine (6) DM II (diabetes mellitus, type II), controlled Code(s): E11.9 - TYPE 2 DIABETES MELLITUS WITHOUT COMPLICATIONS Status: Chronic Comment: Taking Levemir 80u in am and 90u pm, hold currently, serial accuchecks, d/c all hypoglycemic meds (7) Moderate malnutrition Code(s): E44.0 - MODERATE PROTEIN-CALORIE MALNUTRITION Status: Acute - Plan * Hypoglycemia- likely from poor oral intake and moderate malnutrition- she is sleeping alot, and does not eat. I am not sure what her baseline is. Due to the low albumin, I suspect she was doing this well before this admission. Will continue to encourage dietary supplements, and I have placed a call to her daughter Eric, but did not get an answer- will continue to try * Excessive daytime sleepiness- An ABG was ordered, expecting to see an elevated CO2, but this was normal- unclear why she is so drowsy- will cut back her dose of Gabapentin, and monitor * DM- blood glucose continues to run low * CKD- stable * Malnutrition- may need to try Megace if reducing the dose of Gabapentin does not help.
[2019-01-31] MEDS: Gabapentin 100 MG CAP PO SCH (20:47)
[2019-02-01 06:34] LABS: Anion Gap 10 mmol/L (10-20); BUN (Urea Nitrogen) 17 mg/dL (9.8-20.1); Calc. Creatinine Clearance 52 mL/min (70-130); Calcium 8.1 mg/dL (7.8-10.44); Carbon Dioxide 24 mmol/L (23-31); Chloride 112 mmol/L (98-107); Estimated GFR-MDRD 30; Glucose 86 mg/dL (80-115); Sodium 141 mmol/L (136-145)
[2019-02-01] MEDS: Enoxaparin Sodium 40 MG/0.4 ML SYRINGE SC SCH (09:35)
[2019-02-01] MEDS: Lisinopril/Hydrochlorothiazide 20/25 mg Tablet PO SCH (09:36)
[2019-02-01] MEDS: Cefdinir 300 MG CAP PO SCH ×2 (09:36→19:39)
[2019-02-01] MEDS: NIFEdipine XL 60 MG TAB PO SCH (09:36)
[2019-02-01] MEDS: Cyanocobalamin (Vitamin B-12) 1,000 MCG TAB PO SCH (09:36)
[2019-02-01] MEDS: Gabapentin 100 MG CAP PO SCH ×3 (09:37→19:39)
[2019-02-01] MEDS: Aspirin 81 mg Enteric Coated Tablet PO SCH (09:37)
[2019-02-01] MEDS: pyridOXINE 50 MG (B6) TAB PO SCH (09:37)
[2019-02-01] MEDS: Folic Acid 1 MG TAB PO SCH (09:38)
[2019-02-01] MEDS: Dextrose 5 % And 0.9 % NaCl 1,000 ML IV SCH (09:39)
--- NOTE | 2019-02-01 11:10 | PDOC.PN ---
- Subjective Encounter Start Date: 02/01/19 Encounter Start Time: 11:09 Ms. Ojeda was seen today in follow-up. She is a bit more alert this morning. Her nurse siad she ate a few more bites of her breakfast than yesterday. - Objective Resuscitation Status - Order Detail: 01/26/19 06:01 Resuscitation Status Routine Resuscitation Status: FULL: Full Resuscitation MAR Reviewed: Yes Vital Signs & Weight: Vital Signs (12 hours) Temp Pulse Resp BP BP Pulse Ox 02/01/19 09:36 71 166/87 H 02/01/19 04:00 97.4 F L 68 16 145/70 H 98 02/01/19 00:00 97.7 F 66 16 164/78 H 98 Weight Admit Weight 269 lb 6.4 oz Weight 269 lb 6.4 oz I&O: 01/31/19 02/01/19 02/02/19 06:59 06:59 06:59 Intake Total 1867 980 Output Total 1950 200 Balance -83 780 Result Diagrams: 01/29/19 04:16 02/01/19 05:46 Additional Labs: Accuchecks 02/01/19 02/01/19 01/31/19 06:16 00:18 17:57 POC Glucose 93 94 92 01/31/19 12:46 POC Glucose 99 Phys Exam - Physical Examination HEENT: PERRLA Respiratory: no wheezing, no rales, no rhonchi, clear to auscultation bilateral Cardiovascular: RRR, no significant murmur, no rub Gastrointestinal: soft, non-tender, no distention, positive bowel sounds Musculoskeletal: pulses present (+ edema in both upper and lower extremities), edema present + swelling in both upper and lower extremities Neurological: non-focal, normal sensation Psychiatric: normal affect, A&O x 3 Dx/Plan (1) Hypoglycemia Code(s): E16.2 - HYPOGLYCEMIA, UNSPECIFIED Status: Acute Comment: Iatrogenic due to Levemir, hold Levemir, D5 IVF, encourage po intake, serial accuchecks, increase D5 IVF 100ml/h (2) Hypertension Code(s): I10 - ESSENTIAL (PRIMARY) HYPERTENSION Status: Acute (3) Morbid obesity with BMI of 45.0-49.9, adult Code(s): E66.01 - MORBID (SEVERE) OBESITY DUE TO EXCESS CALORIES; Z68.42 - BODY MASS INDEX (BMI) 45.0-49.9, ADULT Status: Acute (4) UTI (urinary tract infection) Status: Acute (5) CKD (chronic kidney disease), stage III Code(s): N18.3 - CHRONIC KIDNEY DISEASE, STAGE 3 (MODERATE) Status: Chronic Comment: Avoid nephrotoxic meds and limit contrast exposure, IVF's, serial creatinine (6) DM II (diabetes mellitus, type II), controlled Code(s): E11.9 - TYPE 2 DIABETES MELLITUS WITHOUT COMPLICATIONS Status: Chronic Comment: Taking Levemir 80u in am and 90u pm, hold currently, serial accuchecks, d/c all hypoglycemic meds (7) Moderate malnutrition Code(s): E44.0 - MODERATE PROTEIN-CALORIE MALNUTRITION Status: Acute - Plan * Hypoglycemia- due to poor oral intake- she is more alert this morning, and appears to be eating more. Will discontinue the D5 drip, and monitor * Drowsiness- this may be due to Gabapentin- the dose was reduced. I also suspect she may have some underlying depression as well- will add Zoloft. * HTN- blood pressure is better * Acute on chronic kidney injury- her renal function is better. I believe she is close to her baseline. * Malnutrition- continue dietary supplements * Hopefully transfer to half-way soon
--- NOTE | 2019-02-01 15:23 | PQF ---
DATE: 02-01-19 ATTN: DR. DEAN WATSON Please exercise your independent, professional judgment in responding to the clarification form. Clinical indicators are provided on the bottom of this form for your review Please check appropriate box(s): [ X] I (concur) with the Wound Care findings as stated below. [ ] I (concur) with the Nurses Assessment findings as stated below. [ ] Pressure Ulcer: (Stage I: Erythema; Stage II: Partial thickness; Stage III : Full thickness; Stage IV: Necrosis to muscle/bone) [ ] Location: POA: [ ] Yes [ ] No[ ] Unable to determine Stage (I to IV): (Left Right Bilateral N/A ) [ ] No pressure ulcer diagnosis [ ] Deep tissue injury [ ] Other diagnosis [ ] Unable to determine In addition, please specify: Present on Admission (POA): [ X ] Yes [ ] No [ ] Unable to determine For continuity of documentation, please document condition throughout progress notes and discharge summary. Thank You. CLINICAL INDICATORS - SIGNS / SYMPTOMS / LABS WOUND CARE TEAM 01-28-19: LEFT INNER THIGH ABRASION, PARTIAL THICKNESS NURSE ASSESSMENT 01-26-19: LEFT GROIN PRESSURE ULCER, STAGE 3 RISK FACTORS: WOUND CARE ASSESSMENT 01-28-19: PT ALERT & ORIENTED TO PERSON, SPEECH UNCLEAR, OBESITY, IMMOBILITY, HX F ENCEPHALOPATHY, HTN, CKD, DM TREATMENTS: WOUND CARE CONSULT 01-28-19: DRESSING CHANGE Q 3 DAYS, WOUND IRRIGATION/ CLEANING, PATIENT/ FAMILY EDUCATION (This form is maintained as a part of the permanent medical record) 2014 [employer]. All Rights Reserved JOHN [email or web address] Office: [phone] LAURA
[2019-02-02] MEDS: Enoxaparin Sodium 40 MG/0.4 ML SYRINGE SC SCH (10:13)
[2019-02-02] MEDS: Lisinopril/Hydrochlorothiazide 20/25 mg Tablet PO SCH (10:14)
[2019-02-02] MEDS: Cefdinir 300 MG CAP PO SCH (10:14)
[2019-02-02] MEDS: NIFEdipine XL 60 MG TAB PO SCH (10:14)
[2019-02-02] MEDS: pyridOXINE 50 MG (B6) TAB PO SCH (10:15)
[2019-02-02] MEDS: Cyanocobalamin (Vitamin B-12) 1,000 MCG TAB PO SCH (10:15)
[2019-02-02] MEDS: Aspirin 81 mg Enteric Coated Tablet PO SCH (10:16)
[2019-02-02] MEDS: Folic Acid 1 MG TAB PO SCH (10:16)
[2019-02-02] MEDS: Gabapentin 100 MG CAP PO SCH (10:16)
--- NOTE | 2019-02-02 10:37 | PDOC.PN ---
- Subjective Encounter Start Date: 02/02/19 Encounter Start Time: 10:35 Ms. Ojeda was seen today in follow-up of hypoglycemia and encephalopathy. She is more alert today. She has been reported to be eating more. - Objective Resuscitation Status - Order Detail: 01/26/19 06:01 Resuscitation Status Routine Resuscitation Status: FULL: Full Resuscitation MAR Reviewed: Yes Vital Signs & Weight: Vital Signs (12 hours) Temp Pulse Resp BP BP Pulse Ox 02/02/19 10:14 74 172/84 H 02/02/19 07:46 98.3 F 74 20 172/84 H 97 02/02/19 04:00 97.2 F L 77 16 171/81 H 98 02/02/19 00:00 97.5 F L 73 16 169/80 H 98 Weight Admit Weight 269 lb 6.4 oz Weight 269 lb 6.4 oz I&O: 02/01/19 02/02/19 02/03/19 06:59 06:59 06:59 Intake Total 980 720 Output Total 200 300 Balance 780 420 Result Diagrams: 01/29/19 04:16 02/01/19 05:46 Additional Labs: Accuchecks 02/02/19 02/01/19 02/01/19 06:05 23:57 18:16 POC Glucose 95 95 95 02/01/19 11:27 POC Glucose 89 Phys Exam - Physical Examination HEENT: PERRLA Respiratory: no rales, no rhonchi, wheezing present + occsaional wheeze, Cardiovascular: RRR, no significant murmur, no rub Gastrointestinal: soft, non-tender, no distention, positive bowel sounds Musculoskeletal: pulses present, edema present + chronic venous stasis changes Neurological: non-focal, normal sensation, moves all 4 limbs Dx/Plan (1) Hypoglycemia Code(s): E16.2 - HYPOGLYCEMIA, UNSPECIFIED Status: Acute Comment: Iatrogenic due to Levemir, hold Levemir, D5 IVF, encourage po intake, serial accuchecks, increase D5 IVF 100ml/h (2) Hypertension Code(s): I10 - ESSENTIAL (PRIMARY) HYPERTENSION Status: Acute (3) Morbid obesity with BMI of 45.0-49.9, adult Code(s): E66.01 - MORBID (SEVERE) OBESITY DUE TO EXCESS CALORIES; Z68.42 - BODY MASS INDEX (BMI) 45.0-49.9, ADULT Status: Acute (4) UTI (urinary tract infection) Status: Acute (5) CKD (chronic kidney disease), stage III Code(s): N18.3 - CHRONIC KIDNEY DISEASE, STAGE 3 (MODERATE) Status: Chronic Comment: Avoid nephrotoxic meds and limit contrast exposure, IVF's, serial creatinine (6) DM II (diabetes mellitus, type II), controlled Code(s): E11.9 - TYPE 2 DIABETES MELLITUS WITHOUT COMPLICATIONS Status: Chronic Comment: Taking Levemir 80u in am and 90u pm, hold currently, serial accuchecks, d/c all hypoglycemic meds (7) Moderate malnutrition Code(s): E44.0 - MODERATE PROTEIN-CALORIE MALNUTRITION Status: Acute - Plan * Hypoglycemia- improved with improved oral intake * HTN- blood pressure is a bit elevated- but can have continued tritration in the swing bed * DM- blood glucose is stable - Insulin is on HOLD * Excessive sleepiness- continue Gabapentin at the lower dose * Stable for transition to retirement.
[2019-02-02 12:22] VITALS: TEMP 97.4
[2019-02-02 12:56] VITALS: BP 143/79
--- NOTE | 2019-02-03 01:27 | DIS ---
DATE OF ADMISSION: 01/26/2019 DATE OF DISCHARGE: 02/02/2019 DISCHARGE DISPOSITION: [place] [facility]. DISCHARGE DIAGNOSES: 1. Hypoglycemia. 2. Metabolic encephalopathy secondary to hypoglycemia. 3. Diabetes mellitus type 2. 4. Hypertension, uncontrolled. 5. Obesity. DISCHARGE MEDICATIONS: Please note that the patient's dose of gabapentin was decreased from 300 t.i.d. to 100 t.i.d., Procardia XL 60 mg was added daily as well as Zoloft 50 mg at bedtime. Continue: 1. Vitamin B6 25 mg daily. 2. Klor-Con 40 mEq twice a day. 3. Folic acid 2.5 mg daily. 4. Vitamin D3 of 2000 units daily. 5. Omnicef 300 mg twice a day for 3 days. 6. Lisinopril hydrochlorothiazide 20/25 one tablet daily. 7. Linzess 145 mcg daily. 8. Aspirin 81 mg a day. PROCEDURES DONE DURING THE ADMISSION: The patient had a CT angiogram which showed no acute arterial abnormality. The patient had a CT scan of the brain showing no significant acute intracranial process. The patient had a CT of the [place], showing no acute findings. CODE STATUS: Full code. ALLERGIES: NO KNOWN DRUG ALLERGIES. HOSPITAL COURSE: Ms. Ojeda is a pleasant 68-year-old female, who was brought in by family after she was found at home to be altered and less responsive. Her blood sugar was noted to be around 68. She was given some juice and responded to this. Stroke was ruled out and an a.m. cortisol was also done as well as thyroid function test, which were normal and it is suspected that the hypoglycemia is likely related to poor oral intake and decreased glycogen stores due to moderate malnutrition. It was also noted that she was very drowsy during her hospital stay and the dose of gabapentin was cut to 100 mg three times a day with improved results. It is noted that an ABG was done and her pCO2 was normal. She also had a urinary tract infection in which the urine culture was negative and she is being treated with Omnicef for this. Also, Procardia was added for better blood pressure control. She is clinically improved and is being discharged to the Swing bed in [place]. Job ID: [id number]
== END 2019-02-02 15:08 | DRG 637 ==
LOC: ERS 23:29 → ERHOLD 01-26 04:39 → 2SE 01-26 13:16
PROVIDERS: ADMIT Hospitalist; ATTEND Hospitalist
DX: E11.649 Type 2 diabetes mellitus with hypoglycemia without coma (principal); L89.893 Pressure ulcer of other site, stage 3; G93.41 Metabolic encephalopathy; N39.0 Urinary tract infection, site not specified; E44.0 Moderate protein-calorie malnutrition; Z68.42 Body mass index [BMI] 45.0-49.9, adult; E66.01 Morbid (severe) obesity due to excess calories; E11.22 Type 2 diabetes mellitus with diabetic chronic kidney disease; N18.3 Chronic kidney disease, stage 3 (moderate); I12.9 Hypertensive chronic kidney disease with stage 1 through stage 4 chronic kidney disease, or unspecified chronic kidney disease; N17.9 Acute kidney failure, unspecified; Z79.899 Other long term (current) drug therapy; Z79.82 Long term (current) use of aspirin
CPT/HCPCS: 36415; 36416; 36430; 36556; 51702; 70450; 70496; 70498; 71045; 80048; 80053; 81003; 81015; 82274; 82533; 82550; 82607; 82728; 82746; 82805; 83036; 83540; 83550; 84439; 84443; 84484; 85014; 85018; 85025; 85046; 85049; 85610; 85730; 86850; 86900; 86901; 87086; 90471; 90670; 93005; 96361; 96374; 96375; 96376; G0009; J0360; J0696; J1650; J2916; J3486; J3490; P9016; Q9967

== ENCOUNTER 2019-04-11 07:48 | Inpatient (IN) | payer MEDICARE, MEDICAID ==
[2019-04-11] MEDS ORDERED: Ampicillin/Sulbactam 3 GM in Sodium Chloride 0.9% 100 ML IVPB SCH (08:45)
[2019-04-11 08:58] LABS: Hemoglobin 7.5 g/dL (12.0-16.0); Mean Corpuscular HGB CONC 31.2 g/dL (32.0-36.0); Mean Corpuscular Volume 96.1 fL (78.0-98.0); Platelet Count 290 thou/uL (130-400); RBC Distribution Width 14.9 % (11.5-14.5); Red Blood Cell (RBC) Count 2.48 mill/uL (4.20-5.40); White Blood Cell (WBC) Count 16.6 thou/uL (4.8-10.8)
[2019-04-11 09:05] LABS: ALT (SGPT) Less than 7 U/L (8-55); AST (SGOT) 11 U/L (5-34); Albumin 2.2 g/dL (3.4-4.8); Alkaline Phosphatase 78 U/L (40-150); Anion Gap 15 mmol/L (10-20); BUN (Urea Nitrogen) 43 mg/dL (9.8-20.1); Bilirubin, Total 0.7 mg/dL (0.2-1.2); Calc. Creatinine Clearance 0 mL/min (70-130); Calcium 9.1 mg/dL (7.8-10.44); Carbon Dioxide 19 mmol/L (23-31); Chloride 124 mmol/L (98-107); Estimated GFR-MDRD 28; Globulin 4.7 g/dL (2.4-3.5); Glucose 90 mg/dL (80-115); Potassium 3.5 mmol/L (3.5-5.1); Protein, Total 6.9 g/dL (6.0-8.3); Sodium 154 mmol/L (136-145)
--- NOTE | 2019-04-11 09:09 | CT ---
CT BRAIN NONCONTRAST: DATE: 04/11/19 TIME: 0857 hours HISTORY: 68-year-old female with altered mental status. FINDINGS: There is no midline shift or any other mass effect. There is no evidence of acute intracranial hemor rhage, large cortical infarct, obstructive hydrocephalus, or extraaxial fluid collection. The calvar ium is intact. IMPRESSION: No acute intracranial findings. jn [] POS: [facility]
[2019-04-11 09:18] LABS: Band 18 % (5-11); Lymphocytes 16 % (21-51); MDiff Complete? YES; Monocytes 2 % (0-10); Neutrophil 63 % (42-75); Platelet Morphology Comment Appears Adequate; Polychromasia SLIGHT = 2-3 cells (100X) (0-2/hpf); Reactive Lymphocytes 1 % (0-10)
[2019-04-11 09:20] LABS: Bilirubin Negative (Negative); Blood, Urine 1+ (Negative); Clarity Turbid (Clear); Glucose, Urine (Dipstick) Normal (Negative); Leukocyte 500 Leu/uL (Negative); Nitrite Negative (Negative); Protein, Urine (Dipstick) 200 mg/dL (Neg-Trace); WBC/HPF Greater than 50 HPF (0-3); Yeast-Budding 2+ HPF (None Seen)
[2019-04-11 09:21] LABS: Bacteria/HPF 1+ HPF (None Seen)
[2019-04-11 09:27] LABS: CKMB 0.7 ng/mL (0-6.6)
--- NOTE | 2019-04-11 09:31 | RAD ---
PORTABLE CHEST 1 VIEW: Date: 04/11/19 Time: 0903 hours HISTORY: Difficulty breathing. FINDINGS/IMPRESSION: Comparison made with exam of 01/26/19. There has been interval removal of the right-sided central line. The heart size is borderline. The ao rta is tortuous. There are bibasilar infiltrates, right greater than left. No pneumothoraces or large effusions are seen. Small effusions may be present. POS: [facility]
[2019-04-11] MEDS ORDERED: Ondansetron ODT 4 MG TAB SL PRN (16:26)
[2019-04-11] MEDS ORDERED: Ondansetron PF 4 MG/2 ML Vial IVP PRN ×2 (16:26→18:33)
[2019-04-11] MEDS ORDERED: Acetaminophen 325 MG TAB PO PRN ×2 (16:26→18:33)
[2019-04-11] MEDS ORDERED: Lactated Ringer's 1,000 ML IV SCH (16:30)
[2019-04-11 16:59] VITALS: BMI 33.8
[2019-04-11] MEDS ORDERED: HumaLOG 300 UNITS/3 ML VIAL SC PRN ×2 (18:33)
[2019-04-11] MEDS ORDERED: cloNIDine 0.1 MG TAB PO PRN (18:33)
[2019-04-11] MEDS ORDERED: Ondansetron ODT 4 MG TAB PO PRN (18:33)
[2019-04-11] MEDS ORDERED: HYDROcodone/Acetaminophen 10/325 mg Tablet PO PRN (18:33)
[2019-04-11] MEDS ORDERED: Dextrose 5% in Water 1,000 ML IV PRN (18:33)
[2019-04-11] MEDS ORDERED: HYDROcodone/Acetaminophen 5/325 mg Tablet PO PRN (18:33)
[2019-04-11] MEDS ORDERED: hydrALAZINE 20 MG/ML VIAL SLOW IVP PRN (18:33)
[2019-04-11] MEDS ORDERED: Dextrose 50% Abboject 50 ML SYRINGE SLOW IVP PRN (18:33)
[2019-04-11] MEDS: Sodium Chloride 0.45% 1,000 ML IV SCH (19:00)
[2019-04-11] MEDS: Famotidine 20 MG TAB PO SCH (20:27)
--- NOTE | 2019-04-12 01:35 | HP ---
PRIMARY CARE PHYSICIAN: Rohit Lee MD. REASON FOR ADMISSION: Extremely weak and congested in the care home. HISTORY OF PRESENT ILLNESS: Ms. Howell is a very pleasant 68-year-old female who has a history of hypertension and diabetes mellitus. She also is severely deconditioned and essentially almost bedbound. She has been residing at the [facility] when they noticed that she had fever and appeared congested and as a result, they sent her to the ER for evaluation. In the ER, she was found to have bilateral pulmonary infiltrates as well as an elevated white blood cell count and she is being admitted for healthcare-associated pneumonia. There is also concern that she may have aspirated as well. The patient is very pleasant and smiles a lot, but she does not endorse any problems. When asked if she is having any chest pain or shortness of breath, she denies this, but she appears visibly uncomfortable at times. Her daughter who is also a nurse is concerned about an ulcer on her heel and otherwise no other complaints are elicited. REVIEW OF SYSTEMS: Essentially negative. The patient answers pretty much no to everything asked. CONSTITUTIONAL: She has had fever, but no chills, no night sweats, no weight loss. HEENT: No headaches, no dizziness, no visual changes, no sore throat or rhinorrhea. No neck pain. No adenopathy. PULMONARY: As the History of Present Illness. CARDIOVASCULAR: She denies chest pain or shortness of breath. No PND. No orthopnea. GENITOURINARY: No urinary frequency or hematuria. No hesitancy. NEUROLOGIC: No focal weakness. No seizures. SKIN AND INTEGUMENT: They did notice some skin breakdown on her right heel which has been present as well as chronic venous stasis changes. MUSCULOSKELETAL: She denies any joint pains and no muscle tenderness or pain. PSYCHIATRIC: No symptoms of anxiety or depression. PAST MEDICAL HISTORY: Significant for hypertension and diabetes as well as hypercholesterolemia. Unknown whether or not she has had a previous stroke, but the family believe so. PAST SURGICAL HISTORY: She has had a hysterectomy. ALLERGIES: NO KNOWN DRUG ALLERGIES. SOCIAL HISTORY: She is , has 4 children. She currently resides at [facility]. She is a DNAR and her medical power of assistant attorney general is Wily, her daughter. FAMILY HISTORY: Significant for diabetes mellitus. CURRENT MEDICATIONS: Include; 1. Aspirin 81 mg daily. 2. Carvedilol 6.25 mg twice daily. 3. Vitamin D3 of 2000 units daily. 4. Folic acid 2.5 mg daily. 5. Gabapentin 100 mg t.i.d. 6. Hydralazine 50 mg daily. 7. Hydrochlorothiazide 25 mg daily. 8. Megace 400 mg daily. 9. Mirtazapine 7.5 mg at bedtime. 10. Nifedipine extended release 60 mg daily. 11. Pyridoxine 25 mg daily. 12. Zoloft 50 mg at bedtime. PHYSICAL EXAMINATION: GENERAL: She is alert and oriented. She appears to be in no acute distress. She is well developed, but she does have some temporal wasting even in the setting of what appears to be edema or obesity on her extremities. VITAL SIGNS: Her blood pressure was 157/83, heart rate 100, respiratory rate of 24, and she is afebrile, temperature was 100 on admission. HEENT: Again temporal wasting. Pupils are equal, round, and reactive to light. Extraocular muscles are intact. Her sclerae are anicteric. Throat; there is no erythema, no exudates. NECK: No adenopathy, no bruits. LUNGS: She has rhonchi and rales throughout. CARDIOVASCULAR: She has normal S1 and S2. There is no S3 or S4. No murmurs or clicks, no rubs. ABDOMEN: Obese, it is soft, nontender, and nondistended. Positive for bowel sounds. There is no rebound, no guarding, no organomegaly. EXTREMITIES: There is no calf tenderness. No joint effusions. NEUROLOGIC: Her cranial nerves are intact, 2 through 12. SKIN AND INTEGUMENT: She has a thickened icteric skin bilaterally in both her lower extremities and some pressure ulcer on the right heel, which is a stage II, and it is oval and approximately 6 cm to 7 cm in diameter. No purulent drainage. LABORATORY RESULTS: Sodium is 154, potassium 3.5, chloride is 124, CO2 is 19, BUN of 43, creatinine 2.10, glucose is 90. CBC; white blood cell count 16.6, hemoglobin 7.5, hematocrit is 23.8, and platelet count is 290. Urinalysis was positive for 1+ bacteria and too numerous to count wbc's. ASSESSMENT: 1. This is a very pleasant 68-year-old female, who presents with bilateral infiltrates on exam and an elevated white blood cell count, consistent with pneumonia. This could be either healthcare associated or could be aspiration. She will be admitted to the medical floor and started on IV antibiotics to cover for hospital-acquired pneumonia as well as aspiration. 2. Speech Therapy will be consulted as well as obtain a modified barium swallow. 3. Hypernatremia. This is likely due to volume depletion and dehydration and inadequate oral intake. She will be placed on IV fluids. Initially we will place her on IV saline and then transition her down to a hypotonic fluid. 4. Acute renal failure. This is likely due to volume depletion and prerenal azotemia. We will continue IV fluid resuscitation. She has moderate malnutrition, likely due to some degree of dysphagia. Once the swallowing evaluation is complete, we can determine what type of supplementation can be given. 5. Decubitus ulcer on the heel. We will have medication for pain available and we will also consult Wound Care. 6. Diabetes mellitus. We will place her on a sliding scale insulin and further recommendations to follow. Job ID: [id number]
[2019-04-12] MEDS: Sodium Chloride 0.45% 1,000 ML IV SCH (03:01)
[2019-04-12 05:48] LABS: Anion Gap 17 mmol/L (10-20); BUN (Urea Nitrogen) 46 mg/dL (9.8-20.1); Calc. Creatinine Clearance 38 mL/min (70-130); Calcium 8.9 mg/dL (7.8-10.44); Carbon Dioxide 16 mmol/L (23-31); Chloride 125 mmol/L (98-107); Estimated GFR-MDRD 27; Glucose 111 mg/dL (80-115); Potassium 3.6 mmol/L (3.5-5.1); Sodium 154 mmol/L (136-145)
[2019-04-12 06:00] LABS: Band 23 % (5-11); Hemoglobin 6.5 g/dL (12.0-16.0); Lymphocytes 15 % (21-51); MDiff Complete? YES; Mean Corpuscular HGB CONC 31.9 g/dL (32.0-36.0); Mean Corpuscular Hemoglobin 30.5 pg (27.0-31.0); Mean Corpuscular Volume 95.5 fL (78.0-98.0); Mean Platelet Volume 8.2 fL (7.4-10.4); Metamyelocyte 1 % (0-0); Monocytes 5 % (0-10); Neutrophil 56 % (42-75); Platelet Count 235 thou/uL (130-400); Platelet Morphology Comment Appears Adequate; RBC Distribution Width 14.8 % (11.5-14.5); Red Blood Cell (RBC) Count 2.13 mill/uL (4.20-5.40); White Blood Cell (WBC) Count 13.3 thou/uL (4.8-10.8)
[2019-04-12] MEDS: Piperacillin/Tazobactam 3.375 GM in Sodium Chloride 0.9% 100 ML IVPB SCH ×5 (06:22→20:37)
--- NOTE | 2019-04-12 12:23 | RAD ---
MODIFIED BARIUM SWALLOW IN THE PRESENCE OF THE SPEECH PATHOLOGIST: HISTORY: Pneumonitis due to inhalation of food and vomiting. Dysphagia, unspecified. Feeding difficulties. FINDINGS: In the presence of the speech pathologist, the patient was administered pudding and nectar-thick cons istencies. There is prolongation of the oral phase. There is penetration and aspiration (silent) wi th nectar-thick consistencies. IMPRESSION: Penetration and aspiration. Please refer to the speech pathologist's report for feeding recommendations. POS: OFF
[2019-04-12] MEDS: Enoxaparin Sodium 30 MG/0.3 ML SYRINGE SC SCH (12:35)
[2019-04-12] MEDS: Dextrose 5% in Water 1,000 ML IV SCH ×2 (12:47→18:21)
--- NOTE | 2019-04-12 15:58 | PDOC.HOSPP ---
- Subjective Subjective: Ms. Howell was seen today in follow-up of Pneumonia. She is awake and alert. She denies having any pain. - Objective Vital Signs & Weight: Vital Signs (12 hours) Temp Pulse Resp BP Pulse Ox 04/12/19 15:43 97 F L 60 16 122/54 L 99 04/12/19 07:42 97.3 F L 66 16 107/56 L 100 Weight Admit Weight 216 lb Weight 216 lb I&O: 04/11/19 04/12/19 04/13/19 06:59 06:59 06:59 Intake Total 1825 Output Total 75 Balance 1750 Result Diagrams: 04/12/19 04:44 04/12/19 04:44 Additional Labs: Accuchecks 04/12/19 04/12/19 04/12/19 12:29 04:53 00:43 POC Glucose 135 H 112 H 114 H 04/11/19 16:33 POC Glucose 102 ROS - Review of Systems All systems: All other ROS were reviewed and found negative. - Medication Medications: Active Medications Generic Name Dose Route Start Last Admin Trade Name Fide PRN Reason Stop Dose Admin Enoxaparin Sodium 30 mg 04/12/19 09:00 04/12/19 12:35 Lovenox SC Not Given 0900 RUTH ANN Famotidine 20 mg 04/11/19 21:00 04/11/19 20:27 Pepcid PO Not Given QPM RUTH ANN Piperacillin Sod/Tazobactam 100 mls @ 200 mls/hr 04/11/19 23:59 04/12/19 12: 47 Sod 3.375 gm/ Sodium Chloride IVPB 100 mls Q6HR RUTH ANN Administration Dextrose/Water 1,000 mls @ 125 mls/hr 04/12/19 10:15 04/12/19 12:47 D5w IV 1,000 mls .Q8H RUTH ANN Administration - Exam Eye: PERRL, anicteric sclera (+ temporal wasting) Heart: RRR, no murmur, no gallops, no rubs Respiratory: CTAB, no wheezes, no rales, no ronchi Gastrointestinal: soft, non-tender, non-distended, normal bowel sounds, no palpable masses Extremities: no cyanosis, no edema Hosp A/P (1) Aspiration pneumonia Code(s): J69.0 - PNEUMONITIS DUE TO INHALATION OF FOOD AND VOMIT Status: Acute (2) Hypertension Code(s): I10 - ESSENTIAL (PRIMARY) HYPERTENSION Status: Chronic (3) Moderate malnutrition Code(s): E44.0 - MODERATE PROTEIN-CALORIE MALNUTRITION Status: Chronic (4) CKD (chronic kidney disease), stage III Code(s): N18.3 - CHRONIC KIDNEY DISEASE, STAGE 3 (MODERATE) Status: Chronic (5) DM II (diabetes mellitus, type II), controlled Code(s): E11.9 - TYPE 2 DIABETES MELLITUS WITHOUT COMPLICATIONS Status: Chronic - Plan * Aspiration Pneumonia- slowly improving * Continue Zosyn * She has significant risk for aspiration- discussed with Speech Therapist, as well as the patient's daughter's. They will need to think things overnight- they are decided between diet with risks, and PEG tube * HTN- blood pressure is stable * Acute on chronic anemia- will transfuse * DM-blood glucose is stable
[2019-04-12] MEDS ORDERED: Sodium Chloride 0.9% 500 ML IVPB SCH (19:15)
[2019-04-12] MEDS: Famotidine 20 MG TAB PO SCH (20:37)
[2019-04-13] MEDS: Piperacillin/Tazobactam 3.375 GM in Sodium Chloride 0.9% 100 ML IVPB SCH ×4 (01:15→20:37)
[2019-04-13] MEDS: Dextrose 5% in Water 1,000 ML IV SCH (01:19)
[2019-04-13] MEDS ORDERED: Nystatin Powder 15 GM BOT TOP PRN (02:50)
[2019-04-13 05:28] LABS: Band 3 % (5-11); Hemoglobin 7.9 g/dL (12.0-16.0); Hypochromia SLIGHT = 6-15 cells (100X) (0-5/hpf); Lymphocytes 9 % (21-51); MDiff Complete? YES; Mean Corpuscular HGB CONC 31.1 g/dL (32.0-36.0); Mean Corpuscular Hemoglobin 29.5 pg (27.0-31.0); Mean Corpuscular Volume 94.8 fL (78.0-98.0); Mean Platelet Volume 8.9 fL (7.4-10.4); Neutrophil 88 % (42-75); Platelet Count 229 thou/uL (130-400); Platelet Morphology Comment Appears Adequate; RBC Distribution Width 14.4 % (11.5-14.5); Red Blood Cell (RBC) Count 2.67 mill/uL (4.20-5.40); White Blood Cell (WBC) Count 14.2 thou/uL (4.8-10.8)
[2019-04-13 07:44] LABS: Anion Gap 14 mmol/L (10-20); BUN (Urea Nitrogen) 48 mg/dL (9.8-20.1); Calc. Creatinine Clearance 33 mL/min (70-130); Calcium 8.4 mg/dL (7.8-10.44); Carbon Dioxide 17 mmol/L (23-31); Chloride 125 mmol/L (98-107); Estimated GFR-MDRD 23; Glucose 137 mg/dL (80-115); Potassium 3.2 mmol/L (3.5-5.1); Sodium 153 mmol/L (136-145)
[2019-04-13] MEDS: Enoxaparin Sodium 30 MG/0.3 ML SYRINGE SC SCH (08:35)
[2019-04-13] MEDS ORDERED: Sodium Chloride 0.9% 1,000 ML IV SCH (11:15)
--- NOTE | 2019-04-13 16:42 | PDOC.FMACP ---
Advance Care Planning - Problem (1) Aspiration pneumonia Status: Acute Code(s): J69.0 - PNEUMONITIS DUE TO INHALATION OF FOOD AND VOMIT (2) Hypertension Status: Chronic Code(s): I10 - ESSENTIAL (PRIMARY) HYPERTENSION (3) Moderate malnutrition Status: Chronic Code(s): E44.0 - MODERATE PROTEIN-CALORIE MALNUTRITION (4) CKD (chronic kidney disease), stage III Status: Chronic Code(s): N18.3 - CHRONIC KIDNEY DISEASE, STAGE 3 (MODERATE) (5) DM II (diabetes mellitus, type II), controlled Status: Chronic Code(s): E11.9 - TYPE 2 DIABETES MELLITUS WITHOUT COMPLICATIONS - Note Participants: family Summary: Advanced Care Planning was discussed. The diagnosis, prognosis and goals of care were discussed, specifically PEG tube placement versus pleasure feeds, and Hospice care. Appropriate forms and documentation to accomplish the goals of care were discussed. All questions were answered. The Palliative Care Team will be engaged to assist with completion of any outstanding forms that are needed. Time Spent (mins): 20
--- NOTE | 2019-04-13 16:44 | PDOC.HOSPP ---
- Subjective Subjective: Ms. Howell was seen today in follow-up of aspiration pneumonia. She is a bit more lethargic today. Her daughter is at the bedside, and she says her mother denied having pain . - Objective Vital Signs & Weight: Vital Signs (12 hours) Temp Pulse Resp BP Pulse Ox 04/13/19 15:45 97.3 F L 18 172/77 H 100 04/13/19 10:37 97.3 F L 64 16 156/72 H 95 04/13/19 07:35 97.3 F L 58 L 16 136/55 L 97 04/13/19 06:00 97.6 F 58 L 18 134/68 97 Weight Admit Weight 216 lb Weight 216 lb I&O: 04/12/19 04/13/19 04/14/19 06:59 06:59 06:59 Intake Total 1825 2950 Output Total 75 100 Balance 1750 2850 Result Diagrams: 04/13/19 04:18 04/13/19 07:02 Additional Labs: Accuchecks 04/13/19 04/13/19 04/13/19 15:46 10:46 04:24 POC Glucose 129 H 137 H 148 H 04/12/19 20:24 POC Glucose 121 H ROS - Review of Systems All systems: All other ROS were reviewed and found negative. - Medication Medications: Active Medications Generic Name Dose Route Start Last Admin Trade Name Freq PRN Reason Stop Dose Admin Enoxaparin Sodium 30 mg 04/12/19 09:00 04/13/19 08:35 Lovenox SC Not Given 0900 RUTH ANN Famotidine 20 mg 04/11/19 21:00 04/12/19 20:37 Pepcid PO Not Given QPM RUTH ANN Piperacillin Sod/Tazobactam 100 mls @ 200 mls/hr 04/12/19 20:00 04/13/19 14: 44 Sod 3.375 gm/ Sodium Chloride IVPB 100 mls 0200,0800,1400,2000 RUTH ANN Administration Sodium Chloride 10 ml 04/13/19 09:00 04/13/19 07:43 Flush - Normal Saline IVF Not Given Q12HR RUTH ANN - Exam Eye: PERRL, anicteric sclera Heart: RRR, no murmur, no gallops, no rubs, normal peripheral pulses Respiratory: CTAB, no wheezes, no rales, no ronchi, normal chest expansion Gastrointestinal: soft, non-tender, non-distended, normal bowel sounds Extremities: 2+ LE edema (+ chronic venous stasis changes and leathery skin changes) Hosp A/P (1) Aspiration pneumonia Code(s): J69.0 - PNEUMONITIS DUE TO INHALATION OF FOOD AND VOMIT Status: Acute (2) Hypertension Code(s): I10 - ESSENTIAL (PRIMARY) HYPERTENSION Status: Chronic (3) Moderate malnutrition Code(s): E44.0 - MODERATE PROTEIN-CALORIE MALNUTRITION Status: Chronic (4) CKD (chronic kidney disease), stage III Code(s): N18.3 - CHRONIC KIDNEY DISEASE, STAGE 3 (MODERATE) Status: Chronic (5) DM II (diabetes mellitus, type II), controlled Code(s): E11.9 - TYPE 2 DIABETES MELLITUS WITHOUT COMPLICATIONS Status: Chronic - Plan * Aspiration pneumonia- will continue IV Zosyn for now- If the family decides on Hospice, then will change to Augmentin, suspension * Hypernatremia- continue fluid resuscitation * Anemia- improved after transfusion- likely due to chronic disease * Goals of care again discussed with the family, and they have decided on Hospice care
[2019-04-13] MEDS ORDERED: Scopolamine 1.5 mg/72 hour Patch TOP SCH (19:30)
[2019-04-13] MEDS ORDERED: Dextrose 5% in Water 1,000 ML IV SCH (19:30)
[2019-04-13] MEDS: Famotidine 20 MG TAB PO SCH (20:40)
[2019-04-14] MEDS ORDERED: Furosemide 20 MG/2 ML VIAL SLOW IVP SCH ×2 (01:45→03:30)
[2019-04-14] MEDS: Piperacillin/Tazobactam 3.375 GM in Sodium Chloride 0.9% 100 ML IVPB SCH ×3 (01:47→14:51)
[2019-04-14] MEDS ORDERED: Morphine 2 MG/ML SYRINGE SLOW IVP SCH (02:15)
[2019-04-14] MEDS ORDERED: Albumin 25% 25 GM/100 ML BOT IVPB SCH (02:15)
--- NOTE | 2019-04-14 03:22 | PDOC.EVN ---
Event Note - Event Note Event Note: patient in respiratory distress, sats continued to drop on non-breather, crackles on auscultation, fluids stopped, duonebs, lasix 40mg, nitro 1/2 inch, has not put out more than 100ml of urine in the last 24-48 hours. Admitted for aspiration pneumonia, dehydration, hypernatremia Discussed case with Dr. Cohen who ordered Bipap and transfer to [facility]
[2019-04-14] MEDS ORDERED: Nitroglycerin 2% Ointment 1 INCH/1 GM Packet TOP SCH (03:30)
[2019-04-14] MEDS ORDERED: Lorazepam 2 MG/ML VIAL SLOW IVP PRN ×2 (05:44→14:15)
--- NOTE | 2019-04-14 05:46 | PDOC.EVN ---
Event Note - Event Note Event Note: Care discussed with multiple family members at bedside in CCU. Updated about the events of night.. They are waiting for other siblings to arrive to make final decision but do not want any aggressive measures for now including intubation.
--- NOTE | 2019-04-14 07:58 | RAD ---
Exam: Chest one view: HISTORY: Hypoxic COMPARISON: 04/11/2019 FINDINGS: New confluent bilateral alveolar parenchymal changes in the perihilar regions and right lower lobe wi th right pleural effusion new or markedly progressive from prior study. Heart size is within normal limits. IMPRESSION: New bilateral alveolar parenchymal changes in the left midlung zone and right lower lung zone with in creasing right pleural effusion evidence for bilateral pneumonia. Continued short-term follow-up for clearing or stability.
--- NOTE | 2019-04-14 09:01 | PDOC.HOSPP ---
- Subjective Subjective: f/u for CHF, aspiration PNA, deconditioning and resp failure. Worsening SOB overnight and placed on BiPAP NIMV and moved to CCU. Remains DNAR per family who are requesting comfort care now. - Objective Vital Signs & Weight: Vital Signs (12 hours) Temp Pulse Resp BP BP Pulse Ox 04/14/19 05:00 96.3 F L 04/14/19 04:49 94 L 04/14/19 02:39 97.5 F L 73 22 H 175/95 H 93 L 04/14/19 02:30 92 L 04/14/19 02:19 97.3 F L 76 22 H 174/108 H 92 L 04/14/19 01:15 97.3 F L 73 24 H 167/100 H 88 L 04/14/19 00:00 97.5 F L 74 20 167/83 H 93 L Weight Admit Weight 216 lb Weight 216 lb Most Recent Monitor Data Heart Rate from ECG 80 NIBP 189/92 NIBP BP-Mean 124 Respiration from ECG 20 SpO2 96 I&O: 04/13/19 04/14/19 04/15/19 06:59 06:59 06:59 Intake Total 2950 610 Output Total 100 12 Balance 2850 598 Result Diagrams: 04/13/19 04:18 04/13/19 07:02 Additional Labs: Accuchecks 04/14/19 04/14/19 04/13/19 07:31 00:11 19:48 POC Glucose 137 H 126 H 122 H 04/13/19 04/13/19 15:46 10:46 POC Glucose 129 H 137 H Microbiology 01/26/19 02:45 Urine vences catheter Urine Culture - Final 04/11/19 08:41 Venous blood - Left Hand Blood Culture - Preliminary NO GROWTH AT 48 HOURS 04/11/19 08:23 Venous blood - Right Arm Blood Culture - Preliminary NO GROWTH AT 48 HOURS 01/26/19 02:45 Urine vences catheter Urine Culture - Preliminary Laboratory Tests 08/17/18 01/26/19 01/26/19 12:20 01:30 01:30 WBC Hgb 9.4 L 8.4 L Band Neuts % (Manual) Sodium Potassium 3.0 L Creatinine Hemoglobin A1c Iron TIBC Ferritin Vitamin B12 Folate 01/26/19 01/27/19 01/27/19 12:02 06:06 06:06 WBC Hgb 7.8 L 7.1 L Band Neuts % (Manual) Sodium Potassium Creatinine Hemoglobin A1c 3.9 L Iron TIBC Ferritin Vitamin B12 Folate 01/28/19 01/28/19 01/28/19 06:37 06:48 07:17 WBC Hgb Band Neuts % (Manual) Sodium Potassium Creatinine Hemoglobin A1c Iron 40 L TIBC 105 L Ferritin 383.44 H Vitamin B12 984 H Folate 2.60 L 04/11/19 04/11/19 04/12/19 08:23 08:23 04:44 WBC 16.6 H Hgb 7.5 L Band Neuts % (Manual) 18 H Sodium 154 H 154 H Potassium 3.5 3.6 Creatinine 2.10 H 2.21 H Hemoglobin A1c Iron TIBC Ferritin Vitamin B12 Folate 04/12/19 04/13/19 04:44 04:18 WBC 13.3 H Hgb 6.5 L Band Neuts % (Manual) 23 H 3 L Sodium Potassium Creatinine Hemoglobin A1c Iron TIBC Ferritin Vitamin B12 Folate Radiology Reviewed by me: Yes (PCXR - increased bilat infilitrates, worsening edema) EKG Reviewed by me: Yes (Tele - SR ) ROS - Review of Systems All systems: All other ROS were reviewed and found negative. - Medication Medications: Active Medications Generic Name Dose Route Start Last Admin Trade Name Freq PRN Reason Stop Dose Admin Enoxaparin Sodium 30 mg 04/12/19 09:00 04/13/19 08:35 Lovenox SC Not Given 0900 RUTH ANN Famotidine 20 mg 04/11/19 21:00 04/13/19 20:40 Pepcid PO Not Given QPM RUTH ANN Piperacillin Sod/Tazobactam 100 mls @ 200 mls/hr 04/12/19 20:00 04/14/19 01: 47 Sod 3.375 gm/ Sodium Chloride IVPB 100 mls 0200,0800,1400,2000 RUTH ANN Administration Lorazepam 1 mg 04/14/19 05:44 04/14/19 06:12 Ativan SLOW IVP 1 mg Q4H PRN Administration Anxiety/Agitation Scopolamine 1.5 mg 04/13/19 19:30 04/13/19 20:38 Transderm Scop TOP 1.5 mg Q3D RUTH ANN Administration Sodium Chloride 10 ml 04/13/19 09:00 04/13/19 20:40 Flush - Normal Saline IVF 10 ml Q12HR RUTH ANN Administration - Exam ill appearing Eye: PERRL ENT: normocephalic atraumatic, no oropharyngeal lesions, dry oral mucosa Neck: supple, symmetric, no JVD, no Thyromegaly Heart: RRR, no murmur, no gallops, no rubs Respiratory: rales, rhonchi, tachypneic Gastrointestinal: non-distended, normal bowel sounds, no palpable masses Extremities: no cyanosis, 2+ LE edema Musculoskeletal: generalized weakness Psychiatric: somnolent (Does not respond to voice/touch), lethargic Hosp A/P (1) Acute respiratory failure with hypoxia Code(s): J96.01 - ACUTE RESPIRATORY FAILURE WITH HYPOXIA Status: Acute Plan: Worsening edema/infiltrate on CXR, continue supportive mgmt, family wants to pursue comfort/palliative measures and discontinue BiPAP, continue O2 via NC, Ativan/Morphine Sulfate (2) KALEIGH (acute kidney injury) Code(s): N17.9 - ACUTE KIDNEY FAILURE, UNSPECIFIED Status: Acute Plan: Worsening renal failure likely due to intravascular volume depletion, likely end -stage process (3) Aspiration pneumonia Code(s): J69.0 - PNEUMONITIS DUE TO INHALATION OF FOOD AND VOMIT Status: Acute Plan: Suspected, increasing infiltrates/edema on PCXR (4) Acute metabolic encephalopathy Code(s): G93.41 - METABOLIC ENCEPHALOPATHY Status: Acute Plan: Persistent and likely multifactorial, apparent end-stage process (5) Hypernatremia Code(s): E87.0 - HYPEROSMOLALITY AND HYPERNATREMIA Status: Acute Plan: Persistent due to dehydration - Plan plan discussed w/ family, medical social worker, dc tele Consults: Hospice, Palliative Care Family wishing to pursue comfort/hospice care Will consult [facility] per family request Continue Ativan/Morphine Sulfate for comfort care D/C BiPAP NIMV Transfer to Medical floor
--- NOTE | 2019-04-14 09:13 | PDOC.FMACP ---
Advance Care Planning - Problem (1) Acute respiratory failure with hypoxia Status: Acute Code(s): J96.01 - ACUTE RESPIRATORY FAILURE WITH HYPOXIA (2) KALEIGH (acute kidney injury) Status: Acute Code(s): N17.9 - ACUTE KIDNEY FAILURE, UNSPECIFIED (3) Aspiration pneumonia Status: Acute Code(s): J69.0 - PNEUMONITIS DUE TO INHALATION OF FOOD AND VOMIT (4) Acute metabolic encephalopathy Status: Acute Code(s): G93.41 - METABOLIC ENCEPHALOPATHY (5) Hypernatremia Status: Acute Code(s): E87.0 - HYPEROSMOLALITY AND HYPERNATREMIA - Note Participants: patient, family, surrogate decision-maker Summary: Advanced Care Planning was discussed. The diagnosis, prognosis and goals of care were discussed. Appropriate forms and documentation to accomplish the goals of care were discussed. All questions were answered. The Palliative Care Team will be engaged to assist with completion of any outstanding forms that are needed. Discussed with family and MPOEthan Armendariz(daughter) regarding persistent clinical decline despite medical interventions. Family wishing to pursue hospice care/comfort measures today. Will notify [facility] per family request. Family in agreement to proceed with hospice care and d/c BiPAP NIMV. Total ACP time: 25min Time Spent (mins): 25
[2019-04-14] MEDS ORDERED: Morphine 4 MG/ML VIAL SLOW IVP PRN (10:18)
[2019-04-14] MEDS: Enoxaparin Sodium 30 MG/0.3 ML SYRINGE SC SCH (12:21)
[2019-04-14 13:56] VITALS: BP 97/60; TEMP 97.8
[2019-04-14] MEDS ORDERED: Ondansetron PF 4 MG/2 ML Vial IVP PRN (14:13)
[2019-04-14] MEDS ORDERED: diphenhydrAMINE 50 MG/ML VIAL IVP PRN (14:14)
[2019-04-14] MEDS ORDERED: Morphine 4 MG/ML VIAL IV PRN (14:15)
[2019-04-14] MEDS ORDERED: Scopolamine 1.5 mg/72 hour Patch TOP SCH (15:00)
[2019-04-14] MEDS ORDERED: Morphine 4 MG/ML VIAL IV SCH (16:00)
--- NOTE | 2019-04-15 00:55 | DIS ---
DATE OF ADMISSION: 04/11/2019 DATE OF DISCHARGE: 04/14/2019 DISCHARGE DIAGNOSES: 1. Acute hypoxic respiratory failure secondary to #2. 2. Aspiration pneumonia, suspected gram-negative rods. 3. Acute kidney injury. 4. Acute metabolic encephalopathy, multifactorial. 5. Hypernatremia. CONSULTATIONS: [facility]. PERTINENT LAB AND X-RAY FINDINGS: Sodium ranged between 153 to 154, potassium ranged between 3.2 to 3.6. Creatinine ranged between 2.10 to 2.53. Lactic acid level 1.0. BNP 477. CBC showed a white blood cell count ranging between 13.3 to 16.6, hemoglobin ranging between 6.5 to 7.9. Blood cultures x2 dated 04/11/2019, showed no growth at 48 hours. Portable chest x-ray dated 04/11/2019, showed bibasilar infiltrates, right greater than left. CT of the brain without contrast dated 04/11/2019, showed no acute intracranial process. Modified barium swallow exam dated 04/12/2019, showed penetration and aspiration. Portable chest x-ray dated 04/14/2019, showed worsening bilateral parenchymal changes in the left mid lung and right lower lung zones with right pleural effusion. HOSPITAL COURSE: The patient was initially admitted after presenting with extreme deconditioning and generalized weakness with cough and shortness of breath. The patient presented from [facility] with worsening dyspnea and hypoxia. The patient was noted with bilateral infiltrates on chest imaging concerning for infectious process or healthcare associated pneumonia with component of aspiration. The patient was placed on broad-spectrum IV antibiotic therapy and given aggressive pulmonary supportive management. The patient continued to receive pulmonary supportive management, however, continued to decompensate clinically with worsening shortness of breath. The patient and family were wishing a do not attempt resuscitation status and decided to pursue comfort care if the patient clinically decompensates requiring short-term BiPAP noninvasive mechanical ventilation. The patient remained unresponsive with worsening infiltrates on chest imaging. The patient transitioned to [facility] care on 04/14/2019. I have examined the patient and discussed with family at the bedside at the time of discharge. Family verbalizes agreement and proceeding with comfort measures. DISCHARGE MEDICATIONS: 1. Morphine sulfate 4 mg IV q.4 hours p.r.n. 2. Lorazepam 1 mg IV q.4 hours p.r.n. 3. Scopolamine 1.5 mg topically q.72 hours. DIET: N.p.o. status. CONDITION AT DISCHARGE: Critical and guarded. DISPOSITION: Inpatient hospice with [facility], 04/14/2019. Job ID: [id number]
== END 2019-04-14 14:28 | disposition hospice, inpatient (51) | DRG 177 ==
LOC: ERS 07:48 → ERHOLD 10:06 → T4-A 16:25 → CCU 04-14 04:19 → T4-A 04-14 12:17
PROVIDERS: ADMIT Internal Medicine; ATTEND Internal Medicine
DX: J69.0 Pneumonitis due to inhalation of food and vomit (principal); J96.01 Acute respiratory failure with hypoxia; G93.41 Metabolic encephalopathy; L89.613 Pressure ulcer of right heel, stage 3; L89.153 Pressure ulcer of sacral region, stage 3; E87.0 Hyperosmolality and hypernatremia; N17.9 Acute kidney failure, unspecified; E44.0 Moderate protein-calorie malnutrition; Z66 Do not resuscitate; E11.22 Type 2 diabetes mellitus with diabetic chronic kidney disease; N18.3 Chronic kidney disease, stage 3 (moderate); I12.9 Hypertensive chronic kidney disease with stage 1 through stage 4 chronic kidney disease, or unspecified chronic kidney disease; D63.1 Anemia in chronic kidney disease; E78.00 Pure hypercholesterolemia, unspecified; Z74.01 Bed confinement status; Z90.710 Acquired absence of both cervix and uterus; Z79.82 Long term (current) use of aspirin; Z79.899 Other long term (current) drug therapy; Z79.84 Long term (current) use of oral hypoglycemic drugs; E86.0 Dehydration
CPT/HCPCS: 36415; 36416; 36430; 51702; 70450; 71045; 74230; 80048; 80053; 81003; 81015; 82553; 83605; 83880; 84484; 85025; 86850; 86900; 86901; 87040; 94660; 94760; 96361; 96365; A4353; J0295; J1650; J1940; J2060; J2270; J2543; J3490; J7620; P9016; P9047

== ENCOUNTER 2019-04-14 14:34 | Inpatient (IN) | payer OTHER ==
[2019-04-14] MEDS ORDERED: Morphine 4 MG/ML VIAL SLOW IVP PRN (14:52)
[2019-04-14] MEDS ORDERED: Lorazepam 2 MG/ML VIAL SLOW IVP PRN (14:52)
[2019-04-14] MEDS ORDERED: Ondansetron PF 4 MG/2 ML Vial SLOW IVP PRN (14:53)
[2019-04-14] MEDS ORDERED: diphenhydrAMINE 50 MG/ML VIAL IVP PRN (14:53)
[2019-04-14] MEDS ORDERED: Scopolamine 1.5 mg/72 hour Patch TOP SCH (15:00)
[2019-04-14] MEDS: Morphine 4 MG/ML VIAL SLOW IVP SCH ×2 (16:41→18:13)
[2019-04-14 17:26] VITALS: BP 100/63
[2019-04-14 18:31] VITALS: TEMP 97.4
--- NOTE | 2019-04-15 13:41 | DIS ---
DATE OF ADMISSION: 04/14/2019 DATE OF DISCHARGE: 04/14/2019 DATE OF : 04/14/2019. BRIEF SUMMARY OF HISTORY AND PHYSICAL: The patient is a 68-year-old female who admitted to [facility] on 04/11/2019, from [facility]. The patient was found to have acute hypoxic respiratory failure secondary to aspiration pneumonia as well as acute kidney injury and acute metabolic encephalopathy. The patient was seen in the emergency room and admitted for bilateral pneumonia. She was placed on broad spectrum antibiotics and pulmonary toilet and support. The patient continued to decompensate clinically with worsening shortness of breath. The family and the patient were wishing to switch her to do not attempt to resuscitation and decided to pursue comfort care only with short term BiPAP. Since the patient continued to worsen and did not improve, it was decided that the patient would be transferred to inpatient hospice here. BRIEF SUMMARY OF HOSPITAL CARE: The patient was admitted to inpatient hospice, placed on IV morphine, lorazepam, scopolamine. Comfort measures were instituted. The patient continued to decompensate and on the day of admission. The patient was found by nursing staff to be unresponsive without respirations nor pulse. [employer] tractor driver teamster was called who evaluated the patient at 17:50 and pronounced the patient at that time. The patient's cause of was due to asystole from suspected cardiac arrhythmia caused by sepsis from her aspiration pneumonia. Family was consulted and body was discharged to home. Job ID: [id number]
--- NOTE | 2019-04-24 13:38 | HP ---
DATE OF : 04/14/2019. CAUSE FOR INPATIENT HOSPICE: Bilateral pneumonia, failed inpatient treatment. HISTORY OF PRESENT ILLNESS: The patient is a 68-year-old female, who is a resident of [facility] at her baseline. She had a history of hypertension and diabetes, severe decondition, especially bedbound at her baseline state. She had a suspected aspiration, was sent to the emergency room, found to have bilateral pneumonia consistent with aspiration pneumonia. The patient underwent an extensive treatment including IV antibiotics, respiratory treatments, and oxygen. The patient continue to decompensate worsen and family wished to change status to DNR and comfort measures only and thus, she was admitted to inpatient hospice. PAST MEDICAL HISTORY: Hypertension, diabetes as well as hyperlipidemia, and history of stroke in the past. PAST SURGICAL HISTORY: Significant for hysterectomy. ALLERGIES: NO KNOWN DRUG ALLERGIES. SOCIAL HISTORY: The patient has 4 children, but is and is a resident at [facility]. Power of breaker tender is Wily, her daughter. FAMILY HISTORY: Significant for diabetes mellitus. MEDICATIONS: On the time of acute admission include; 1. Aspirin 81 mg daily. 2. Carvedilol 6.25 mg b.i.d. 3. Vitamin D3 daily. 4. Folic acid 2.5 mg daily. 5. Gabapentin 100 mg p.o. t.i.d. 6. Hydralazine 50 mg p.o. daily. 7. Hydrochlorothiazide 25 mg daily. 8. Megace 400 mg daily. 9. Remeron 7.5 mg p.o. at bedtime. 10. Nifedipine extended release 60 mg daily. 11. Pyridoxine 25 mg daily. 12. Zoloft 50 mg p.o. at bedtime. PHYSICAL EXAMINATION: Physical exam was not performed by me on the patient, because she within 12 hours of admission to inpatient hospice. ASSESSMENT AND PLAN: Plan was to make the patient as comfortably as possible with oxygen, IV morphine for respiratory distress, benzodiazepines for comfort measures as well as scopolamine to help with secretions. She will begin to oxygen as needed for comfort measures only and the patient did past away within 24 hours. Job ID: [id number]
== END 2019-04-14 17:11 | disposition expired | DRG 951 ==
LOC: T4-A 14:34
PROVIDERS: ADMIT Family Medicine; ATTEND Family Medicine
DX: Z51.5 Encounter for palliative care (principal); J69.0 Pneumonitis due to inhalation of food and vomit; J96.01 Acute respiratory failure with hypoxia; G93.41 Metabolic encephalopathy; A41.9 Sepsis, unspecified organism; E87.0 Hyperosmolality and hypernatremia; N17.9 Acute kidney failure, unspecified; E44.0 Moderate protein-calorie malnutrition; Z66 Do not resuscitate; E78.5 Hyperlipidemia, unspecified; E78.00 Pure hypercholesterolemia, unspecified; L89.622 Pressure ulcer of left heel, stage 2; L89.612 Pressure ulcer of right heel, stage 2; E86.9 Volume depletion, unspecified; E11.9 Type 2 diabetes mellitus without complications; R13.10 Dysphagia, unspecified; I10 Essential (primary) hypertension; E86.0 Dehydration; Z79.4 Long term (current) use of insulin; Z86.73 Personal history of transient ischemic attack (TIA), and cerebral infarction without residual deficits; Z74.01 Bed confinement status; Z90.710 Acquired absence of both cervix and uterus; Z79.52 Long term (current) use of systemic steroids
CPT/HCPCS: J2270